=== PATIENT | male | born 1940 | race African-American/Black ===

== ENCOUNTER 2018-03-17 13:00 | Inpatient (IN) | payer MEDICARE, MEDICAID ==
[~2018-03-17] VITALS: Ht 172.7 cm; Wt 85.4 kg
[2018-03-17 15:55] VITALS: BP 91/61; PULSE 61; TEMP 97.7
[2018-03-17] MEDS ORDERED: TYLENOL 325MG325 MG PO (16:15)
[2018-03-17] MEDS ORDERED: COLACE 100100 MG/CAP PO (16:17)
[2018-03-17] MEDS ORDERED: ROXICODONE 55 MG/TAB PO (16:19)
[2018-03-17] MEDS ORDERED: MIRALAX PA17 GM/Dose PO (16:21)
[2018-03-17] MEDS ORDERED: OS-CAL 500 + D1 TAB PO (16:23)
[2018-03-17] MEDS ORDERED: NORVASC 10MG10 MG PO (16:26)
[2018-03-17] MEDS ORDERED: ASPIRIN 81M81 MG/TA2 PO (16:27)
[2018-03-17] MEDS ORDERED: LIPITOR 80MG80 MG PO (16:29)
[2018-03-17] MEDS ORDERED: PLAVIX 75MG TAB75 MG PO (16:30)
[2018-03-17] MEDS ORDERED: COZAAR 50MG50 MG/TAB PO (16:32)
[2018-03-17] MEDS ORDERED: MICROZIDE12.5 MG PO (16:32)
[2018-03-17] MEDS ORDERED: LOPRESSOR 550 MG/TAB PO (16:33)
[2018-03-17] MEDS ORDERED: FLOMAX 0.40.4 MG/CAP (16:34)
[2018-03-18 05:33] VITALS: BP 111/71; PULSE 66; TEMP 98.2
[2018-03-18 18:35] VITALS: BP 111/66; PULSE 74; TEMP 99.6
[2018-03-19 06:00] VITALS: BP 112/73; PULSE 69; TEMP 98.4
[2018-03-19 15:50] VITALS: BP 115/81; PULSE 74; TEMP 97.4
[2018-03-20 06:00] VITALS: BP 103/70; PULSE 77; TEMP 98.3
[2018-03-20 16:00] VITALS: BP 107/71; PULSE 76; TEMP 98.2
[2018-03-21 05:57] VITALS: BP 116/72; PULSE 78; TEMP 98.1
[2018-03-21 16:13] VITALS: BP 111/70; PULSE 72; TEMP 98.7
[2018-03-22 05:54] VITALS: BP 123/83; PULSE 91; TEMP 98
[2018-03-22 15:05] VITALS: BP 111/85; PULSE 65; TEMP 97.7
[2018-03-23 05:18] VITALS: BP 95/63; PULSE 71; TEMP 99.5
[2018-03-23 07:21] VITALS: BP 107/70
[2018-03-23 18:08] VITALS: BP 108/73; PULSE 74; TEMP 98.1
[2018-03-24 05:18] VITALS: BP 116/74; PULSE 96; TEMP 98.9
[2018-03-24 15:59] VITALS: BP 100/68; PULSE 69; TEMP 98.2
[2018-03-25 06:26] VITALS: BP 120/76; PULSE 80; TEMP 98.1
[2018-03-25 15:33] VITALS: BP 106/68; PULSE 74; TEMP 98
[2018-03-26 05:47] VITALS: BP 112/76; PULSE 85; TEMP 98.3
[2018-03-26 15:24] VITALS: BP 106/68; PULSE 68; TEMP 97.4
[2018-03-27 06:11] VITALS: BP 124/79; PULSE 89; TEMP 98.2
[2018-03-27 16:03] VITALS: BP 111/62; PULSE 72; TEMP 98.4
[2018-03-28 05:53] VITALS: BP 117/82; PULSE 71; TEMP 98.1
[2018-03-28 12:35] LABS: COLLECTION METHOD CLEAN CATCH
[2018-03-28 12:46] LABS: MUCOUS Present /lpf; PH 7 (5-8); SQUAMOUS EPITHELIAL 0-2 /hpf; URINE APPEARANCE Clear; URINE BACTERIA None Seen /hpf; URINE BILIRUBIN Negative (NEGATIVE); URINE BLOOD Negative (NEGATIVE); URINE COLOR Yellow; URINE GLUCOSE Negative (NEGATIVE); URINE KETONE Negative (NEGATIVE); URINE LEUKOCYTE ESTERASE Negative (NEGATIVE); URINE NITRATE Negative (NEGATIVE); URINE PROTEIN(semi-quant) Negative (NEGATIVE); URINE RBC 0-2 /hpf; URINE UROBILINOGEN >=4.0 mg/dL (NEGATIVE)
[2018-03-28] MEDS ORDERED: COSOPT 2%-0.5%10 ML OU (13:50)
[2018-03-28] MEDS ORDERED: XALATAN EYE DROPS OU (13:51)
[2018-03-28 15:12] VITALS: BP 118/76; PULSE 71; TEMP 97.8
[2018-03-29 04:09] VITALS: BP 118/75; PULSE 68; TEMP 98.1
[2018-03-29 07:33] LABS: BASO % 0.7 % (0.0-2.0); EOS # 0.2 (0.0-0.7); EOS % 3.6 % (0-4.0); GRAN # 2.7 (1.4-6.5); GRAN % 47.7 % (42.2-75.2); HEMATOCRIT 46.4 % (42.0-52.0); HEMOGLOBIN 15.6 g/dl (13.5-18.0); LYMPH # 2.2 (1.2-3.4); LYMPH % 39.3 % (20.0-51.0); MEAN CELL VOLUME 93 fl (80.0-100.0); MEAN CORPUSCULAR HEMOGLOBIN 31 pg (27.0-31.0); MEAN CORPUSCULAR HGB CONC 34 g/dl (33.0-37.0); MEAN PLATELET VOLUME 9.7 fl (7.4-10.4); MONO # 0.5 (0.1-0.6); MONO % 8.5 % (1.7-9.3); PLATELET COUNT 336 K/mm3 (130-400); REDCELL DISTRIBUTION WIDTH-CV 12.5 % (11.5-14.5)
[2018-03-29 07:59] LABS: CALCIUM 10.5 mg/dL (8.4-10.2); CREATININE, serum 1.03 mg/dL (0.66-1.25); MAGNESIUM 1.5 mg/dL (1.6-2.3); POTASSIUM 3.6 mmol/L (3.4-5.0)
[2018-03-29 15:44] VITALS: BP 115/76; PULSE 72; TEMP 97.8
[2018-03-30 06:25] VITALS: BP 114/72; PULSE 70; TEMP 98
[2018-03-30 17:14] VITALS: BP 118/74; PULSE 66; TEMP 98.9
[2018-03-31 05:24] VITALS: BP 111/75; PULSE 77; TEMP 98.3
[2018-03-31 18:19] VITALS: BP 104/71; PULSE 63; TEMP 98.2
[2018-04-01 04:50] VITALS: BP 112/76; PULSE 73; TEMP 98
[2018-04-01 08:37] VITALS: BP 128/74
[2018-04-01 08:46] LABS: ALBUMIN 3.6 gm/dL (3.5-5.0); BILIRUBIN,TOTAL 1.1 mg/dL (0.0-1.0); CALCIUM 10.1 mg/dL (8.4-10.2); CREATININE, serum 1.1 mg/dL (0.66-1.25); MAGNESIUM 1.6 mg/dL (1.6-2.3); POTASSIUM 3.6 mmol/L (3.4-5.0); TOTAL PROTEIN 7.2 gm/dL (6.4-8.2)
[2018-04-01 14:55] VITALS: BP 105/64; PULSE 78; TEMP 97.9
[2018-04-02 05:42] VITALS: BP 121/78; PULSE 71; TEMP 98.1
[2018-04-02 17:07] VITALS: BP 113/64; PULSE 76; TEMP 98
[2018-04-03 06:00] VITALS: BP 117/79; PULSE 67; TEMP 97.8
[2018-04-03 15:01] VITALS: BP 94/66; PULSE 75; TEMP 97.8
[2018-04-03 19:23] VITALS: BP 99/70; PULSE 78
[2018-04-04 04:39] VITALS: BP 112/66; PULSE 82; TEMP 98.6
[2018-04-04 15:45] VITALS: BP 95/61; PULSE 65; TEMP 98
[2018-04-05 05:17] VITALS: BP 133/86; PULSE 90; TEMP 98.1
[2018-04-05 17:02] VITALS: BP 109/68; PULSE 77; TEMP 98.5
[2018-04-06 05:45] VITALS: BP 140/78; PULSE 84; TEMP 98.4
[2018-04-06 17:55] VITALS: BP 113/76; PULSE 83; TEMP 99.3
[2018-04-07 06:00] VITALS: BP 106/70; PULSE 72; TEMP 98.5
[2018-04-07 15:37] VITALS: BP 109/70; PULSE 68; TEMP 98.3
[2018-04-08 05:19] VITALS: BP 122/76; PULSE 66; TEMP 98.5
[2018-04-08 15:08] VITALS: BP 108/60; PULSE 71; TEMP 97.5
[2018-04-09 05:20] VITALS: BP 122/83; PULSE 73; TEMP 97.6
[2018-04-09 15:45] VITALS: BP 110/76; PULSE 73; TEMP 9805
[2018-04-10 05:36] VITALS: BP 116/77; PULSE 71; TEMP 98.7
[2018-04-10] MEDS ORDERED: ARICEPT 5MG PO (08:53)
[2018-04-10] MEDS ORDERED: COZAAR 25MG25 MG/TAB PO (08:54)
[2018-04-10] MEDS ORDERED: MAG-OX 400400 MG/TAB PO (08:55)
== END 2018-04-10 11:01 | disposition home health service (06) | DRG 552 ==
PROVIDERS: Internal Medicine
DX: M47.12 Other spondylosis with myelopathy, cervical region (principal); I10 Essential (primary) hypertension; I25.10 Atherosclerotic heart disease of native coronary artery without angina pectoris; Z95.5 Presence of coronary angioplasty implant and graft; Z87.891 Personal history of nicotine dependence; E83.42 Hypomagnesemia; E83.52 Hypercalcemia; F03.90 Unspecified dementia, unspecified severity, without behavioral disturbance, psychotic disturbance, mood disturbance, and anxiety
CPT/HCPCS: 99222-AI; 99232-AI; 99239; A9284

== ENCOUNTER 2020-10-29 11:29 | Inpatient (IN) | payer MEDICARE, MEDICAID ==
[~2020-10-29] VITALS: Ht 185.4 cm; Wt 87.3 kg
[~2020-10-29 11:29] MED LIST: ARICEPT 5MG PO; ASPIRIN 81M81 MG/TA2 PO; COLACE 100100 MG/CAP PO; COSOPT 2%-0.5%10 ML OU; COZAAR 25MG25 MG/TAB PO; COZAAR 50MG50 MG/TAB PO; FLOMAX 0.40.4 MG/CAP; LIPITOR 80MG80 MG PO; LOPRESSOR 550 MG/TAB PO; MAG-OX 400400 MG/TAB PO; MICROZIDE12.5 MG PO; MIRALAX PA17 GM/Dose PO; NORVASC 10MG10 MG PO; OS-CAL 500 + D1 TAB PO; PLAVIX 75MG TAB75 MG PO; ROXICODONE 55 MG/TAB PO; TYLENOL 325MG325 MG PO; XALATAN EYE DROPS OU
[2020-10-29 11:46] LABS: BASO # 0.1 (0.0-0.2); BASO % 0.9 % (0.0-2.0); EOS # 0.5 (0.0-0.7); EOS % 9.4 % (0-4.0); GRAN # 2.2 (1.4-6.5); GRAN % 41.8 % (42.2-75.2); HEMATOCRIT 45.5 % (42.0-52.0); HEMOGLOBIN 14.9 g/dl (13.5-18.0); LYMPH % 37.6 % (20.0-51.0); MEAN CELL VOLUME 95 fl (80.0-100.0); MEAN CORPUSCULAR HEMOGLOBIN 31 pg (27.0-31.0); MEAN CORPUSCULAR HGB CONC 33 g/dl (33.0-37.0); MEAN PLATELET VOLUME 10.8 fl (7.4-10.4); MONO # 0.5 (0.1-0.6); MONO % 10.1 % (1.7-9.3); PLATELET COUNT 170 K/mm3 (130-400); REDCELL DISTRIBUTION WIDTH-CV 12.9 % (11.5-14.5)
[2020-10-29 11:52] LABS: INR 1.3 (0.8-3.0); PROTHROMBIN TIME 14.4 SECONDS (9.7-12.8)
[2020-10-29 12:01] LABS: ALANINE AMINOTRANSFERASE 25 U/L (4-49); ALBUMIN 3.9 gm/dL (3.5-5.0); ALKALINE PHOSPHATASE 89 U/L (50-136); ANION GAP 7 mmol/L (7-16); AST,SGOT 35 U/L (15-37); BILIRUBIN,TOTAL 1.3 mg/dL (0.0-1.0); BLOOD UREA NITROGEN 13 mg/dL (9-20); CALCIUM 9.9 mg/dL (8.4-10.2); CARBON DIOXIDE 24 mmol/L (22-30); CHLORIDE 106 mmol/L (98-107); CREATININE, serum 1.06 (0.66-1.25); GLUCOSE 99 mg/dL (74-106); SODIUM 137 mmol/L (137-145); TOTAL PROTEIN 7.5 gm/dL (6.4-8.2)
[2020-10-29 12:03] LABS: ACETAMINOPHEN < 10 ug/mL (10-30); C-REACTIVE PROTEIN < 0.5 mg/dL (0.0-0.9)
[2020-10-29 12:08] LABS: COLLECTION METHOD CATHETER
[2020-10-29 12:18] LABS: TROPONIN-I 0.057 ng/mL (0.000-0.035)
[2020-10-29 12:20] LABS: MUCOUS Present /lpf; PH 6 (5-8); SQUAMOUS EPITHELIAL 0-2 /hpf; URINE APPEARANCE Clear; URINE BACTERIA None Seen /hpf; URINE BILIRUBIN Negative (NEGATIVE); URINE BLOOD Negative (NEGATIVE); URINE COLOR Yellow; URINE GLUCOSE Negative (NEGATIVE); URINE KETONE Negative (NEGATIVE); URINE LEUKOCYTE ESTERASE Negative (NEGATIVE); URINE NITRATE Negative (NEGATIVE); URINE PROTEIN(semi-quant) Negative (NEGATIVE); URINE RBC None Seen /hpf
[2020-10-29 12:27] LABS: ARTERIAL BLD GAS O2 SATURATION 93.2 % (92-100); ARTERIAL BLD GAS TCO2 CT 23.9; ARTERIAL BLOOD GAS BASE EXCESS -2.4 (-2-2); ARTERIAL BLOOD GAS HCO3 22.7 meq/L (22-26); ARTERIAL BLOOD GAS PO2 70.9 mmHg (80-100); ARTERIAL BLOOD GAS pH 7.37 (7.35-7.45)
[2020-10-29 12:34] LABS: TRICYCLIC ANTIDEPRESS URINE NEGATIVE
[2020-10-29 17:44] VITALS: BP 121/83; PULSE 67; TEMP 98.4
--- NOTE | 2020-10-29 18:24 | NUR ---
NOTIFIED HALLE GILL OF PT'S REPEAT TROPONIN OF .062. NO NEW ORDERS AT THIS TIME.
--- NOTE | 2020-10-29 18:25 | NUR ---
PT ADMITTED TO ROOM 312 FROM ED. RECEIVED REPORT FROM HECTOR. PT TO MEDICAL BED VIA SLIDE ASSIST. PT ALERT/UNABLE TO ANSWERS QUESTIONS APPROPRIATELY. ABLE TO ANSWER YES/NO QUESTIONS. FOLLOWS MOTOR COMMANDS. PT ARRIVES IN BRIEF, CLEAN AND DRY AT THIS TIME. FAMILY CONTACTED TO DISCUSS PAST MEDICAL HX AND GO OVER HOME MEDS. PT VS WNL. NEUROLOGY CONTACTED FOR CONSULT. PT RESTING IN BED COMFORTABLY AT THIS TIME.
[2020-10-29] MEDS ORDERED: PROTONIX20 MG PO (18:33)
[2020-10-29] MEDS ORDERED: NAMENDA5 MG PO (18:33)
[2020-10-29] MEDS ORDERED: NORVASC 10MG10 MG PO (18:34)
[2020-10-29] MEDS ORDERED: [UNRECOGNIZED DRUG - OTHER] (18:35)
[2020-10-29 19:05] VITALS: BP 126/91; PULSE 62; TEMP 97.9
[2020-10-29 20:17] VITALS: BP 118/74; PULSE 70; TEMP 97.3
--- NOTE | 2020-10-29 20:30 | NUR ---
Initial shift assessment done- alert/has expressive aphasia, does answer "yes" and 'no" to questions and laughs but cannot put together a sentence, right arm hand seem just slightly weaker than left- bed alarm on, did stand at bedisde with assist and voided per urinal-- NPO and ST has been consulted - did give patient the 5-10 cc of water and pt did swwallow with no cough but seemed to just hold it in his mouth for awhile-- will keep NPO till ST to see-Charisse CORNELL aware. Dr. Stokes was here tonight to see patient for consult-- Pacemaker interrogation was done tonight by Paul SHEETStest deck supervisor
[2020-10-29 23:13] VITALS: BP 113/82; PULSE 74; TEMP 97.4
[2020-10-30 03:18] VITALS: BP 112/56; PULSE 69; TEMP 98
--- NOTE | 2020-10-30 05:19 | NUR ---
Quiet night- VSS, 2 assists to stand at bedside to use urinal--was already incontinent- unable to void more at this time. SCD,s on.
[2020-10-30 07:22] LABS: BASO # 0.1 (0.0-0.2); BASO % 0.9 % (0.0-2.0); EOS # 0.4 (0.0-0.7); EOS % 7.2 % (0-4.0); GRAN # 2.5 (1.4-6.5); GRAN % 47.8 % (42.2-75.2); HEMATOCRIT 47.9 % (42.0-52.0); LYMPH # 1.8 (1.2-3.4); LYMPH % 33.8 % (20.0-51.0); MEAN CELL VOLUME 94 fl (80.0-100.0); MEAN CORPUSCULAR HEMOGLOBIN 31 pg (27.0-31.0); MEAN CORPUSCULAR HGB CONC 33 g/dl (33.0-37.0); MEAN PLATELET VOLUME 11.8 fl (7.4-10.4); MONO # 0.5 (0.1-0.6); MONO % 10.1 % (1.7-9.3); PLATELET COUNT 158 K/mm3 (130-400); RED BLOOD COUNT 5.11 M/mm3 (4.20-5.60); REDCELL DISTRIBUTION WIDTH-CV 12.8 % (11.5-14.5)
[2020-10-30 07:36] VITALS: BP 110/86; PULSE 70; TEMP 98.2
[2020-10-30 07:38] LABS: ALBUMIN 4.1 gm/dL (3.5-5.0); BILIRUBIN,TOTAL 1.2 mg/dL (0.0-1.0); CALCIUM 10.1 mg/dL (8.4-10.2); CREATININE, serum 0.89 (0.66-1.25); POTASSIUM 3.7 mmol/L (3.4-5.0); TOTAL PROTEIN 7.7 gm/dL (6.4-8.2)
[2020-10-30 07:57] LABS: TROPONIN-I 0.196 ng/mL (0.000-0.035)
--- NOTE | 2020-10-30 09:30 | NUR ---
PT PLEASANT, WHEN ASKED QUESTIONS PT WILL ANSWER "YES, NO" OR PT WILL LAUGH. PT WILL FOLLOW COMMANDS. LIFTED BOTH ARMS BUT R ARM WAS LOWER THAN THE LEFT. R CASTING HOUSE LABORER WAS SLIGHTLY WEAKER, BOTH MULTIMEDIA AUTHOR WEAK. L LEG LIFTED, R LEG MOVES ON BED. UNABLE TO TELL IF PT IS ALERT AND ORIENTED. PT INCONTINENT OF URINE, PERICARE PROVIDED, GOWN AND BRIEF CHANGED. ASPIRIN SUPPOSITORY GIVEN. CALLED MRI ABOUT HEAD MRI FOR TODAY AND SHE SAID IT WOULDN'T HAPPEN UNTIL SUNDAY BECAUSE THEY HAVE NO ONE TO PLACE PACEMAKER IN STANDBY. WE ALSO NEED PT CARD FOR PACEMAKER. PT ABLE TO MOVE AROUND IN THE BED AND BOOST HIMSELF. BED ALARM SET DUE TO PT TRYING TO GET UP WHEN NEEDING TO URINATE. URINAL PLACED FOR PT WHEN HE HAS NOT ALREADY BEEN INCONTINENT. MAINTAINTING NPO AT THIS TIME, REPORTED FROM MOTHER REPAIRER RN THAT PT WOULD HOLD WATER IN HIS MOUTH BEFORE SWALLOWING WITH THE SWALLOW TEST.
--- NOTE | 2020-10-30 11:02 | NUR ---
First visit from the inorganic chemical technician. No needs right now.
--- NOTE | 2020-10-30 11:33 | NUR ---
PT DID VERY WELL WITH PT. UP TO EDGE OF BED, ABLE TO KICK OUT R LEG WITH ASSISTANCE AND HOLD IN AIR, ABLE TO MOVE ON BED. UP WITH WALKER, SHUFFLES/DRAGS R LEG GOING FORWARD.
[2020-10-30 12:39] VITALS: BP 114/71; PULSE 73; TEMP 98.2
--- NOTE | 2020-10-30 13:25 | NUR ---
Plan is tenative rehab options Sw called Brie about patients plan and DC care. reports that the patient has a DPOA, DTR Melanie Canela . The phone number on the EMR is not correct for Melanie Roberts. indicated that she is okay with the patient having rehab services, patient is reported to have been at [facility] in the beginning of 2019 for 2 months. reports that her spouse had surgery on his spine two years ago in [place] and does not thinking her every recovered. reports that his pcp is Dr. Oviedo. [facility] is the prefered pharmacy. Patient is reported to have a walker and cane but mainly uses the walker. Report of having a heart monitor at home that is plugged in continuously. SW spoke with patients DTR and she reports that she is okay with rehab but would like to have more medical information about his care. Pt recommends IPR. Waiting on family decision for care. TORRES consult sent to IPR prelim. Staffed with nurse to call DTR. Will continue to follow.
--- NOTE | 2020-10-30 15:48 | NUR ---
daughter oscar updated on pt progress.
[2020-10-30 16:05] VITALS: BP 117/77; PULSE 69; TEMP 98
--- NOTE | 2020-10-30 17:26 | NUR ---
PT PLEASANT, PT HAS REMAINED STABLE WITH STROKE SYMPTOMS, PT STARTED ON MAINTENANCE FLUIDS DUE TO NPO STATUS, PT HAS LOW OUTPUT, NO OTHER NEEDS.
[2020-10-30 19:30] VITALS: BP 112/77; PULSE 63; TEMP 98
--- NOTE | 2020-10-30 21:00 | NUR ---
Initial shift assessment done- VSS 94% on RA, does answer questions with yes and no answers, unable to put together a sentence, laughing at times-- right side slightly weaker than left- both hand bag filler machine operator very weak. Tele on. Denies pain. NPO. LR at 75cc/hr.
--- NOTE | 2020-10-30 22:30 | NUR ---
CARE OF PT TAKEN OVER AT 2200.
--- NOTE | 2020-10-30 23:46 | NUR ---
PT ADMITTED TO 319 DIRECT ADMIT FROM COSBY.
[2020-10-31 00:32] VITALS: BP 119/79; PULSE 112; TEMP 97.8
[2020-10-31 04:19] VITALS: BP 117/64; PULSE 77; TEMP 97.8
--- NOTE | 2020-10-31 06:04 | NUR ---
RESTING QUIETLY/SLEEPING. NEURO CHECKS UNCHANGED FROM PREVIOUS ASSESSMENTS. PT SHOWING NO SIGNS OF PAIN. PT CAN ANSWER YES/NO QUESTIONS BUT HIS ANSWERS ARE NOT ALWAYS APPROPRIATE TO SITUATION.
--- NOTE | 2020-10-31 07:57 | NUR ---
PT INC DROWSINESS FROM YESTERDAY, WOULD NOT HOLD UP LEFT LEG BUT HAD RESISTANCE AGAINST GRAVITY, COULD HOLD BOTH UPPER EXTREMITIES IN THE AIR, R GOLD CHARMER SLIGHTY WEAKER, PT ATTEMPT TO ANSWER QUESTIONS BUT UNABLE TO SPEAK OTHER THAN OK AND YES AND NO.
[2020-10-31 09:15] VITALS: BP 129/81; PULSE 82; TEMP 98.2
--- NOTE | 2020-10-31 09:39 | NUR ---
PT RUBBING HEAD AND SAYING "OH GOSH, OH GOSH" WITH PHYSICAL THERAPY, PT DENIES SLEEPING WELL AND IS MORE DROWSY. PT SAYING "YES MA'AM". ALSO NODDING YES OR NO TO QUESTIONS.
[2020-10-31 12:08] VITALS: BP 117/65; PULSE 62; TEMP 97.6
[2020-10-31 17:48] VITALS: BP 114/83; PULSE 68; TEMP 98.4
--- NOTE | 2020-10-31 17:57 | NUR ---
PT VERY DROWSY DURING SHIFT, PT TRIED TO GET OUT OF BED WHEN NEEDING URINAL, UNABLE TO VOICE NEEDS BUT WOULD URINATE WHEN THE URINAL WAS PLACED, PT ABLE TO HOLD URINAL IN PLACE. DAUGHTER/DPOA BO CALLED AND UPDATED, ASKED BO TO BRING PT PACEMAKER CARD FOR MRI TOMORROW, SHOULD BE DROPPED OFF AROUND [phone]. BO ALSO SAID SHE DOES NOT WANT ANY INFORMATION RELEASED TO ANYONE OTHER THAN GERDA, PT , OR HERSELF.
[2020-10-31 19:13] VITALS: BP 112/78; PULSE 69; TEMP 97.7
[2020-11-01] VITALS (7 sets, daily range): BP systolic 106–125; BP diastolic 75–83; PULSE 61–75; TEMP 97.5–98.5
--- NOTE | 2020-11-01 06:21 | NUR ---
QUIET NIGHT FOR PT. NO CHANGE IN NEURO CHECK RESPONSES. PT DID ANSWER YES/NO RESPONSES TO PAIN MORE APPROPRIATELY DURING THE NIGHT.
--- NOTE | 2020-11-01 09:15 | NUR ---
PT PLEASANT, WILL RESPOND WITH 1 WORD ANSWERS TO QUESTIONS, DENIES PAIN, DID WELL TRANSFERRING TO WHEELCHAIR WITH MRI. PT MORE ALERT THAN YESTERDAY. DOES NOT SHOW SIGNS OF PAIN/DISCOMFORT, PT TAKEN TO MRI AT 0848.
[2020-11-01 10:43] LABS: BASO # 0.1 (0.0-0.2); BASO % 0.9 % (0.0-2.0); EOS # 0.1 (0.0-0.7); EOS % 2.4 % (0-4.0); GRAN # 3.1 (1.4-6.5); GRAN % 53.4 % (42.2-75.2); HEMATOCRIT 48.5 % (42.0-52.0); HEMOGLOBIN 16.1 g/dl (13.5-18.0); LYMPH # 1.9 (1.2-3.4); LYMPH % 32.3 % (20.0-51.0); MEAN CELL VOLUME 93 fl (80.0-100.0); MEAN CORPUSCULAR HEMOGLOBIN 31 pg (27.0-31.0); MEAN CORPUSCULAR HGB CONC 33 g/dl (33.0-37.0); MEAN PLATELET VOLUME 10.2 fl (7.4-10.4); MONO # 0.6 (0.1-0.6); MONO % 10.7 % (1.7-9.3); PLATELET COUNT 188 K/mm3 (130-400); RED BLOOD COUNT 5.19 M/mm3 (4.20-5.60); REDCELL DISTRIBUTION WIDTH-CV 12.7 % (11.5-14.5)
[2020-11-01 10:58] LABS: CREATININE, serum 0.98 (0.66-1.25); MAGNESIUM 1.8 mg/dL (1.6-2.3); POTASSIUM 3.9 mmol/L (3.4-5.0)
[2020-11-01 11:28] LABS: TSH w REFLEX 1.44 uIU/mL (0.465-4.680)
--- NOTE | 2020-11-01 11:29 | NUR ---
ATTEMPTED TO CONTACT MIHAELA X2, NO ANSWER. LEFT VOICEMAIL FOR HIS NURSE AT HIS OFFICE.
--- NOTE | 2020-11-01 12:29 | NUR ---
DAUGHTER BO, AND GERDA CALLED IN AM INFORMING OF TESTS WE WOULD BE PERFORMING ON PT. GERDA ABLE TO INFORM US THAT MIHAELA/ALEXIA WAS HIS CARIDIOLOGY GROUP. PT ATTEMPTING TO GET OUT OF BED AT THIS TIME. WHEN ASKED WHY HE WAS EXITING THE BED HE STATED "I JUST WANT TO SIT UP". THIS IS THE FIRST TIME PT HAS USED A SENTENCE SINCE ADMISSION. BRIGETTE SWENSON NOTIFIED. PT UP TO CHAIR CURRENTLY WITH CALL LIGHT. PT WAS TRANSFERRED WITH GAIT BELT AND WALKER.
--- NOTE | 2020-11-01 13:23 | NUR ---
Radio Maintainer spoke with Jackie, IPR Director who advised they are able to accept patient.
[2020-11-01] MEDS ORDERED: ARICEPT10 MG PO (13:47)
--- NOTE | 2020-11-01 13:48 | NUR ---
PT GLASSES TAKEN TO PT AND HE PUT THEM ON. PT FAMILY ALSO BROUGHT SYNAPSIN NASAL SPRAY, CALLED LEELA MACHUCA TO INFORM OF FAMILY DESEIRE TO RESTART THIS MEDICATION.
--- NOTE | 2020-11-01 18:18 | NUR ---
PT ALERT DURING THE DAY, PT PLEASANT, PT WAS UP TO CHAIR, PT INCONTINENT OF URINE AND STOOL, PT DENIES PAIN OR DISCOMFORT AND DOES NOT SHOW SIGNS OF DISCOMFORT. DA BROUGHT NASAL SPRAY, SENT TO PHARMACY, NO OTHER NEEDS.
--- NOTE | 2020-11-01 22:00 | NUR ---
Pt assessment complete. Pt is laying in bed upon entry, arouses to voice. Is not able to answer questions besides yes and no. Denies pain. Able to take pills whole in applesauce. See Stroke assessment. Incontinent of urine, pericare provided. Fall precautions in place. Will continue to monitor.
[2020-11-02 05:07] VITALS: BP 100/73; PULSE 69; TEMP 98
--- NOTE | 2020-11-02 06:37 | NUR ---
No changes through the night. Pt resting in bed, SCD's on. No needs at this time.
[2020-11-02 07:30] VITALS: BP 119/83; PULSE 65; TEMP 98.1
[2020-11-02 07:51] LABS: BASO # 0.1 (0.0-0.2); BASO % 1.1 % (0.0-2.0); EOS # 0.2 (0.0-0.7); EOS % 4.2 % (0-4.0); GRAN # 1.7 (1.4-6.5); GRAN % 38.6 % (42.2-75.2); HEMATOCRIT 47.6 % (42.0-52.0); HEMOGLOBIN 15.5 g/dl (13.5-18.0); LYMPH % 44.5 % (20.0-51.0); MEAN CELL VOLUME 96 fl (80.0-100.0); MEAN CORPUSCULAR HEMOGLOBIN 31 pg (27.0-31.0); MEAN CORPUSCULAR HGB CONC 33 g/dl (33.0-37.0); MEAN PLATELET VOLUME 11.4 fl (7.4-10.4); MONO # 0.5 (0.1-0.6); MONO % 11.6 % (1.7-9.3); PLATELET COUNT 165 K/mm3 (130-400); RED BLOOD COUNT 4.96 M/mm3 (4.20-5.60); REDCELL DISTRIBUTION WIDTH-CV 13.1 % (11.5-14.5)
[2020-11-02 07:56] LABS: CALCIUM 9.5 mg/dL (8.4-10.2); CHOLESTEROL RISK RATIO 3.1; CREATININE, serum 0.93 (0.66-1.25); POTASSIUM 3.9 mmol/L (3.4-5.0)
--- NOTE | 2020-11-02 08:00 | NUR ---
PATIENT IS ORIENTED X2, DISPLAYS SOME CONFUSION/FORGETFULNESS. PATIENT ALSO DISPLAYING SOME APHAGIA POST CVA. NOTED RIGHT SIDES WEAKNESS. PATIENT IS 2 ASSIST AND INCONTINENT OF BOWL/BLADDER. PATIENT HAD MEDIUM, SOFT-FORMED BM THIS AM. VSS WITH TELE INPLACE. HEAD TO TOE ASSESSMENT COMPLETE, SEE CHARTING. BED ALARM ON. CALL LIGHT IN REACH. AM MEDS GIVEN IN APPLESAUCE.
[2020-11-02 08:44] LABS: ALBUMIN 3.6 gm/dL (3.5-5.0); BILIRUBIN,TOTAL 1.2 mg/dL (0.0-1.0); TOTAL PROTEIN 6.9 gm/dL (6.4-8.2)
--- NOTE | 2020-11-02 10:24 | NUR ---
Initial visit; Patient thanked Statistical Assistant for coming in and was receptive to Statistical Assistant keeping him in her prayers.
--- NOTE | 2020-11-02 11:14 | NUR ---
Data Quality Consultant attended clinical rounds with the team. The patient will tentatively discharge to [facility] for post acute rehab this day.
[2020-11-02] MEDS ORDERED: ELIQUIS 5MG PO (11:21)
[2020-11-02 11:29] VITALS: BP 98/65; PULSE 72; TEMP 97.6
--- NOTE | 2020-11-02 15:15 | NUR ---
PATIENT TRANSFERING TO [facility], SEE DISCHARGE ORDERS. GAVE REPORT TO SUDEEP BERRY. IV'S DC'D, COVERED SITE WITH GLENN. TELE OFF. PATIENT ESCORTED DOWN TO [facility] VIA WC. PERSONAL BELONGINGS SENT.
== END 2020-11-02 15:15 | DRG 64 ==
LOC: COL.ER 11:29 → MEDICAL 14:54
PROVIDERS: Family Medicine; Physician Assistant
DX: I63.9 Cerebral infarction, unspecified (principal); I21.A1 Myocardial infarction type 2; I50.32 Chronic diastolic (congestive) heart failure; R47.01 Aphasia; I48.91 Unspecified atrial fibrillation; R29.704 NIHSS score 4; I25.10 Atherosclerotic heart disease of native coronary artery without angina pectoris; E78.5 Hyperlipidemia, unspecified; N40.0 Benign prostatic hyperplasia without lower urinary tract symptoms; I11.0 Hypertensive heart disease with heart failure; K21.9 Gastro-esophageal reflux disease without esophagitis; G30.9 Alzheimer's disease, unspecified; F02.80 Dementia in other diseases classified elsewhere, unspecified severity, without behavioral disturbance, psychotic disturbance, mood disturbance, and anxiety; Z95.5 Presence of coronary angioplasty implant and graft; Z95.0 Presence of cardiac pacemaker; Z87.891 Personal history of nicotine dependence; Z98.1 Arthrodesis status
CPT/HCPCS: 99223-AI; 99232-AI; 99233-AI; 99239; A9585; J1650; J2310; J7120; Q9967

== ENCOUNTER 2020-11-02 09:22 | Inpatient (IN) | payer MEDICARE, MEDICAID ==
[~2020-11-02] VITALS: Ht 185.4 cm; Wt 81.5 kg
[~2020-11-02 09:22] MED LIST changes: +ARICEPT10 MG PO; +NAMENDA5 MG PO; +PROTONIX20 MG PO; +[UNRECOGNIZED DRUG - OTHER]
[2020-11-02] MEDS ORDERED: ELIQUIS 5MG PO (11:21)
[2020-11-02 15:21] VITALS: BP 99/65; PULSE 89; TEMP 97.6
--- NOTE | 2020-11-02 19:27 | NUR ---
Patient arrived to [facility] Room 338 and his initial was completed by ESPERANZA/Eloina. This nurse worked on admission papers and getting patient settled in. This nurse reported off to night nurse.
[2020-11-03 05:10] VITALS: BP 120/76; PULSE 60; TEMP 97.7
[2020-11-03 05:11] VITALS: BP 120/76; PULSE 60; TEMP 97.7
--- NOTE | 2020-11-03 12:54 | NUR ---
Patient resting in recliner, following eating his lunch. Patient answers yes or no only to questions. Speech is clear when he does speak. Call light in reach.
--- NOTE | 2020-11-03 16:08 | NUR ---
The patient had a CVA. The patient has difficulty finding words he wants to say. TORRES contacted the patient's , Brie (ph#[phone]), to complete intake. The patient lives in [place] with his . Brie reports that she set out his clothes and assisted him with bathing prior to hospitalization. His PCP is Dr. Nimesh Ybarra and she receives the patient's medications at [facility]. The patient does not have a DPOA-HC in EMR, but Brie reports that the patient does have one completed and that the patient's daughter, Melanie Canela (ph#[phone]), is her DPOA-HC. Brie reports that Dr. Ybarra's office should have a copy of the document. TORRES contacted Dr. Ybarra's [facility] office to inquire if they have a copy. The medical secretary receptionist reports that they do and will fax the document to the surgical unit. TORRES received the DPOA-HC, via fax. The patient's DPOA-HC is his daughter, Melanie. TORRES placed the document in the patient's chart. TORRES reviewed the IPR Team Conference Note with Brie and the team's recommendation to re-eval next Sunday. Brie was in agreement to the plan. TORRES to continue to follow.
[2020-11-03 17:07] VITALS: BP 126/72; PULSE 90; TEMP 99
--- NOTE | 2020-11-03 20:21 | NUR ---
RECEIVED CHANGE OF SHIFT REPORT FROM DAY SHIFT NURSE.
[2020-11-04 05:05] VITALS: BP 113/82; PULSE 69; TEMP 97.7
--- NOTE | 2020-11-04 07:05 | NUR ---
PT SLEEPING IN BED AT BEDSIDE SHIFT REPORT. BED IN LOW, CALL LIGHT WITHIN REACH, ALARM ON.
--- NOTE | 2020-11-04 07:28 | NUR ---
CHANGE OF SHIFT REPORT GIVEN TO DAY SHIFT NURSESANTO. PATIENT SLEPT DURING NIGHT WITH NO REPORTED PROBLEMS, WITH INCONTINENT EPISODES DURING THE NIGHT. BED ALARM ON WHEN IN BED.
[2020-11-04 16:19] VITALS: BP 104/75; PULSE 87; TEMP 97.8
[2020-11-04 17:26] VITALS: BP 127/84; PULSE 88; TEMP 98.4
[2020-11-04 18:00] VITALS: BP 104/75; PULSE 66; TEMP 98.1
--- NOTE | 2020-11-04 19:41 | NUR ---
PT REQUIRED SOME CUEING FOR MEALS TODAY BUT DOES WELL EATING OTHERWISE. DENIED PAIN, WAS CHECKED Q2 AND INCONTIENT OFTEN TODAY. PT NEEDS MUCH VERBAL CUEING FOR TRANSFERS OR ANY TASKS. VERY PLEASANT.
--- NOTE | 2020-11-04 21:00 | NUR ---
PT RESTING IN BED. PT HAS DIFFICULTY ANSWRIN QUESTION. WIFES NAME, DAUGHTERS NAME, . CALM AND COOPERATIVE. BUT IMPULSIVE AT TIMES. PT DOES NOT WANT TO CHANGE IN HS CLOTHES. WEARS DIAPERS FOR URINARY INCONTINENT. HAS NOT BEEN INCONT OF 1899. DENIES ANY PAIN. ASSIST TO BR WITH WALKER. LEANS WAY OVER WITH WALKER TOO FAR OUT FRONT. PT UNABLE TO FOLLOW CUES.UNSAFE GAIT. BILAT CUSTOMS OPENER VERIFIER PACKER EQUAL. EQUAL PUSH PULLS WITH FEET. CALL LIGHT IN REACH. BED ALARM SET.
[2020-11-05 05:38] VITALS: BP 105/66; PULSE 60; TEMP 97.9
--- NOTE | 2020-11-05 07:11 | NUR ---
PT WAS IMPULSIVE TWICE THROUGH THE NIGHT GETTING UP ON SIDE OF BED. FORGOT TO USE CALL LIKE. BED ALARM SOUNDING. SLEPT WELL THROUGH THE NIGHT.
--- NOTE | 2020-11-05 07:12 | NUR ---
PT SLEEPING IN BED AT BEDSIDE SHIFT REPORT. BED IN LOW, CALL LIGHT WITHIN REACH, BED ALARM ON.
[2020-11-05 08:34] LABS: BASO # 0.1 (0.0-0.2); EOS # 0.4 (0.0-0.7); EOS % 8.1 % (0-4.0); GRAN # 1.5 (1.4-6.5); GRAN % 31.4 % (42.2-75.2); HEMATOCRIT 47.9 % (42.0-52.0); HEMOGLOBIN 15.6 g/dl (13.5-18.0); LYMPH # 2.4 (1.2-3.4); LYMPH % 49.3 % (20.0-51.0); MEAN CELL VOLUME 95 fl (80.0-100.0); MEAN CORPUSCULAR HEMOGLOBIN 31 pg (27.0-31.0); MEAN CORPUSCULAR HGB CONC 33 g/dl (33.0-37.0); MEAN PLATELET VOLUME 10.5 fl (7.4-10.4); MONO # 0.5 (0.1-0.6); PLATELET COUNT 195 K/mm3 (130-400); RED BLOOD COUNT 5.07 M/mm3 (4.20-5.60)
[2020-11-05 08:49] LABS: CALCIUM 10.3 mg/dL (8.4-10.2); CREATININE, serum 1.14 (0.66-1.25); MAGNESIUM 1.9 mg/dL (1.6-2.3); POTASSIUM 3.5 mmol/L (3.4-5.0)
--- NOTE | 2020-11-05 13:52 | NUR ---
Admission QIM scores were reviewed by the team. Code of 3 chosen for eating was determined by team discussion to be the most usual performance for this patient during the assessment period. Code of 4 chosen for oral hygiene was determined by team discussion to be the most usual performance before interventions for this patient during the assessment period. Code of 2 chosen for rolling left to right was determined by team discussion to be the most usual performance for this patient during the assessment period. Code of 3 chosen for sit to lying was determined by team discussion to be the most usual performance for this patient during the assessment period.--Jackie Burgos, PD
--- NOTE | 2020-11-05 14:41 | NUR ---
SW met with the patient to follow up before the weekend. The patient states that he is doing well and just resting. He had no other concerns at this time.
[2020-11-05 16:24] VITALS: BP 120/81; PULSE 63; TEMP 98.7
--- NOTE | 2020-11-05 18:22 | NUR ---
PT CONTINENT TODAY. WAS IMPULSIVE WHEN NEEDED TO GET UP TO BATHROOM, DOES NOT CALL. PT FEEDING HIMSELF WELL. JUST NEEDS REMINDERS TO FOLLOW BITES WITH FLUIDS. PT RESTING IN BED WITH BED ALARM ON AND CALL LIGHT WITHIN REACH.
--- NOTE | 2020-11-05 20:00 | NUR ---
PT RESTING IN BED. EXPRESSIVE APHASIA. PT FORGETFUL. ABLE TO FOLLOW SIMPLE DIRECTIONS BUT NOT MULTITASKING. PT PUSHES WALKER WAY OUT IN FRONT AND PT LEANS HUNCHED. PT UNSTEADY WITH POOR SAFETY JUDGEMENT. PT CAN BE IMPULSIVE WHEN NEEDING TO GO TO BR INSTEAD OF USING CALL LIGHT. NO INCONTINENCE TONIGHT. CALL LIGHT IN REACH. REMINDED PT HOE TO USE. BED ALARM SET.
[2020-11-06 05:52] VITALS: BP 148/88; PULSE 68; TEMP 97.9
--- NOTE | 2020-11-06 15:09 | NUR ---
Patient attended all therapies today. He has been continent of bladder this shift. He does not use the call light appropriatly, instead just tries to get up on his own. He is currently resting in bed, call light in reach and bed alarm is set. Patient continues to be educated on the need to use the call light. Patient has expressive ephasia so is unable to communicate his needs without staff asking him yes/no questions. Patient denies pain this shift.
[2020-11-06 16:27] VITALS: BP 108/76; PULSE 64; TEMP 98.4
--- NOTE | 2020-11-06 18:04 | NUR ---
Patient resting in bed eating his supper at this time. Denies pain. He is watching TV. Patient educated on the need to eat slower. He voiced understanding. Patient has been continent this shift. Will continue to monitor.
--- NOTE | 2020-11-06 21:11 | NUR ---
RESTING IN BED. ALERT CALM AND COOPERTIVE. WATCHING TV. DENIES PAIN AT THIS TIME. CAN BE IMPULSIVE. HE IS VERY FORGETFUL. CALL LIGHT IN REACH. BED ALARM SET.
[2020-11-07 05:40] VITALS: BP 118/85; PULSE 68; TEMP 97.7
--- NOTE | 2020-11-07 08:52 | NUR ---
Patient reporting left leg pain this morning. He is unable to verbalize, but flinches when leg is touched. VSS. Will report to Hospitalist.
--- NOTE | 2020-11-07 09:05 | NUR ---
Call placed to Dr. Cheney with Dr. Cheney stating that he would return my call. Patient having positive Skip's sign to left leg/foot. VSS. BP 120/76, P 65, R 18, 90% on 2 L oxygen, Temp 97.5. Heart regular rate.
--- NOTE | 2020-11-07 12:11 | NUR ---
Patient woke up and was able to communicate through yes/no answers that his left leg foot did not hurt any more. Will continue to monitor.
[2020-11-07 15:01] VITALS: BP 104/71; PULSE 61; TEMP 97.9
[2020-11-08 05:24] VITALS: BP 128/90; PULSE 71; TEMP 98.1
--- NOTE | 2020-11-08 07:11 | NUR ---
PT RESTING IN BED AT BEDSIDE SHIFT REPORT. CALL LIGHT WITHIN REACH, BED ALARM ON.
--- NOTE | 2020-11-08 12:05 | NUR ---
PT DID NOT C/O LEFT LEG PAIN TODAY, HOMANS SIGN NEGATIVE, NO REDNESS, SWELLING, OR WARMTH.
--- NOTE | 2020-11-08 15:11 | NUR ---
SW met with the patient to follow after the weekend. The patient was watching TV and states that he is doing alright. He had no concerns for SW at this time.
[2020-11-08 15:48] VITALS: BP 103/70; PULSE 64; TEMP 98
--- NOTE | 2020-11-08 17:16 | NUR ---
PT WAS INCONTINENT OF URINE SEVERAL TIMES TODAY AND BOWEL ONCE. PT TRANSFERING WELL BUT REQUIRING LOTS OF CUEING AND IS EASILY TIRED OUT AFTER ACTIVITY. TOLERATING FEEDING HIMSELF VERY WELL, THIS NURSE CONTINUES TO CHECK FREQUENTLY AND ENCOURAGE FLUIDS IN BETWEEN BITES. PT DENIED ANY PAIN IN CALVES TODAY AND DENIED PAIN WITH ELISE'S NO REDNESS, SWELLING, OR WARMTH.
--- NOTE | 2020-11-08 19:04 | NUR ---
RECEIVED CHANGE OF SHIFT REPORT FROM DAY SHIFT NURSE.
[2020-11-09 03:40] VITALS: BP 121/81; PULSE 59; TEMP 98.7
--- NOTE | 2020-11-09 06:55 | NUR ---
CHANGE OF SHIFT REPORT GIVEN TO DAY SHIFT NURSESANTO.
--- NOTE | 2020-11-09 06:59 | NUR ---
PT SLEEPING IN BED AT BEDSIDE SHIFT REPORT. BED IN LOW, ALARM ON.
[2020-11-09 16:18] VITALS: BP 104/75; PULSE 62; TEMP 98.7
--- NOTE | 2020-11-09 17:36 | NUR ---
PT HAS BEEN CONTINENT ALL DAY, IMPULSIVE TO GET OUT OF BED WHEN NEEDS TO USE RESTROOM, DOES NOT CALL. PT DENIED ANY CALF PAIN TODAY. PT EATING MEALS WELL WITHOUT ASSITANCE, ENCOURAGE FLUIDS AT INTERVALS.
--- NOTE | 2020-11-09 19:38 | NUR ---
RECEIVED CHANGE OF SHIFT REPORT FROM DAY SHIFT NURSE. OXYGEN CONTINUES PER [place]. BED ALARM ON. PATIENT DENIES ANY NEEDS.
[2020-11-10 05:00] VITALS: BP 120/82; PULSE 70; TEMP 98
--- NOTE | 2020-11-10 08:00 | NUR ---
Patient incontinent of urine, changed brief. Currently resting in bed eating breakfast was set up only. Call light in reach and bed alarm is set with therapy by his side. Will continue to monitor.
--- NOTE | 2020-11-10 09:10 | NUR ---
Follow-up visit; Patient thanked Museum Registrar for looking in on him again and states he is doing well.
--- NOTE | 2020-11-10 10:00 | NUR ---
Resting in bed awaiting next therapy session. Bed is in low position and call light is in reach with bed alarm on. Will continue to monitor.
--- NOTE | 2020-11-10 14:00 | NUR ---
Patient had attempted to get up from his recliner and nurse from Surgical Staff attempted to help him, but could not figure out what he wanted. This nurse had him lead her to what he was wanting to say. He wanted to go to the bathroom. Patient did not have any output at that time. Patient is currently working with OT at this time. Will continue to monitor.
--- NOTE | 2020-11-10 16:05 | NUR ---
TORRES met with the patient to present and review the I[facility] Team Conference Note. SW informed him on how the team plans to re-evaluate him next Sunday. The patient was agreeable to the plan. SW contacted and updated the patient's , Brie. Brie was agreeable to the plan.
--- NOTE | 2020-11-10 16:45 | NUR ---
SW contacted the patient's and daughter and scheduled a patient/family conference call for this Sunday, 11/12, at 1300. SW informed IPR Director.
[2020-11-10 17:12] VITALS: BP 103/73; PULSE 62; TEMP 98.1
--- NOTE | 2020-11-10 21:00 | NUR ---
PT RESTING IN BED. CALM AND COOPERATIVE. VERY FORGETFUL BUT HAS NOT BEEN IMPULSIVE YET TONIGHT. PT RELATES HE IS READY TO EAT NOW. HOB ELEVATED. WARMED UP DINNER TRAY IN REFRIG. OCCASIONALLY INCONTINENT OF URINE. INSTRUCTED NOISE TESTER TO TAKE TO BR EVERY FEW HOURS & CHECK TO ENSURE DRYNESS. DENIES PAIN. CALL LIGHT IN REACH. BED ALARM SET.
--- NOTE | 2020-11-11 03:40 | NUR ---
BED ALARM SOUNDING. PT SITTING ON SIDE OF BED. DENIES NEED TO VOID. PT HAS DEMENTIA. CONVINCED PT TO AMB TO BR. PT VOIDED IN TOILET CARMEN CLEAR URINE. PT NOT DRINKING VERY MUCH. PT NOT READY TO GO TO BED. OFFERED WALK IN KRAMER. MASK ON. PT AMB APPROX 25FT. ALITTLE DYSPNEIC. RETURN TO BED. CHECKED O2 SAT-93% RA. PT DENIES PAIN. CALL LIGHT IN REACH. BED ALARM SET.
[2020-11-11 06:00] VITALS: BP 125/89; PULSE 69; TEMP 98
--- NOTE | 2020-11-11 09:18 | NUR ---
Patient resting in bed, call light in reach and bed alarm set. Patient takes pills whole in applesauce. He was set up for his meal this morning. Denies pain at this time. Will continue to monitor.
[2020-11-11 16:56] VITALS: BP 110/81; PULSE 54; TEMP 97.7
--- NOTE | 2020-11-11 22:34 | NUR ---
PT DROWSY BUT COOPERATIVE. TAKES HS PILLS WHOLEWITH WATER. NO CHOKING. PT HAS EXPRESSIVE APHAGIA AND DEMENTIA. WEARS BRIEFS FOR INCONTINENCE. COPPERATIVE AT THIS TIME. CALL LIGHT IN REACH BUT PT NEVER USES IT. BED ALARM SET.
[2020-11-12 05:22] VITALS: BP 121/61; PULSE 72; TEMP 98.6
--- NOTE | 2020-11-12 07:00 | NUR ---
PT RESTING IN BED AT BEDSIDE SHIFT REPORT. ASSISTED FOR SET UP FOR BREAKFAST.
--- NOTE | 2020-11-12 14:16 | NUR ---
SW attended the patient/family conference call. The patient's (Brie) and daughter (Melanie) were on the call. Also present was ST, OT, and PT. ST/OT/PT discussed the patient's progress so far and how the patient will need supervision when he returns home. The patient's reports that she is at home at all times and would be able to provide the supervision, along with the help from home health for bathing. The patient's and daughter report that the patient had home health prior to hospitalization. They could not recall what home health agency he has. SW informed the patient and his family how the plan is to re-evaluate the patient next Sunday. The patient and his family were agreeable to the time. The team answered all questions. SW to follow up with the patient's PCP on what home health agency he has.
[2020-11-12 16:16] VITALS: BP 116/82; PULSE 67; TEMP 97.8
--- NOTE | 2020-11-12 18:18 | NUR ---
PT DENIES PAIN TODAY, DOES NOT EXHIBIT PHYSICAL SIGNS OF DISCOMFORT. WAS SOMEWHAT FRUSTRATED OR IRRITATED A COUPLE TIMES WITH THIS NURSE TODAY. UNABLE TO EXPLAIN WHY. SCHEDULED TYLENOL GIVEN THIS EVENING AFTER HELPED TO BATHROOM AND INTO BED. ENCOURAGING FLUIDS FOR PT, PT DOES NOT ENJOY TEA THAT WAS MADE FOR HIM TODAY. DIFFICULT TO MAKE HIM DRINK.
--- NOTE | 2020-11-12 19:17 | NUR ---
RECEIVED CHANGE OF SHIFT REPORT FROM DAY SHIFT NURSE.
[2020-11-13 05:55] VITALS: BP 108/82; PULSE 65; TEMP 98.2
--- NOTE | 2020-11-13 07:22 | NUR ---
CHANGE OF SHIFT REPORT GIVEN TO DAY SHIFT NURSECHASTITY.
--- NOTE | 2020-11-13 10:00 | NUR ---
Assessment completed, alert/oriented, vital sign stable, denies pain or discomfort, some mild right sided weakness is still noted, patient also continues to have significant expressive aphasia, no other neuro deficits noted, heart RRR, lungs CTA/ no resp difficulty, patient denies other needs, he is up in the chair eating breakfast, morning meds given
[2020-11-13 18:04] VITALS: BP 102/72; PULSE 66; TEMP 98.6
--- NOTE | 2020-11-14 02:13 | NUR ---
AWAKENED FOR MED. PT WAS DRY. DENIES THE NEED TO USE THE BATHROOM. BED ALARM REMAINS ON. CALL LIGHT IN REACH.
[2020-11-14 05:41] VITALS: BP 119/86; PULSE 71; TEMP 98
--- NOTE | 2020-11-14 07:30 | NUR ---
PT WAS CONTINENT THIS SHIFT. UP TO THE BR X3. NO C/O PAIN. BED ALARM ON. CALL LIGHT IN REACH.
--- NOTE | 2020-11-14 09:33 | NUR ---
Assessment completed, vital signs stable, denies pain or discomfort, alert/oriented to person and place, reported sleeping well, patient did not want any breakfast, he denies need to use restoom, wearing adult breifs and those are dry, he took his morning meds and follows commands well, his expressive aphasia does not appear to be as pronounced today and he is able to form sentences with less difficulty based on my assessment, heart RRR/ Eliquis given, bed alarm is on and patient has call light, reminided to call if needing assistance, he denies other needs at this time
[2020-11-14 17:22] VITALS: BP 103/72; PULSE 76; TEMP 98.3
--- NOTE | 2020-11-14 19:33 | NUR ---
RECEIVED CHANGE OF SHIFT REPORT FROM DAY SHIFT NURSE.
[2020-11-15 05:43] VITALS: BP 127/79; PULSE 65; TEMP 98.1
--- NOTE | 2020-11-15 07:00 | NUR ---
CHANGE OF SHIFT REPORT GIVEN TO DAY SHIFT NURSESANTO.
--- NOTE | 2020-11-15 07:05 | NUR ---
PT SLEEPING IN BED AT BEDSIDE SHIFT REPORT. BED IN LOW, ALARM ON.
[2020-11-15 16:11] VITALS: BP 102/75; PULSE 60; TEMP 98.3
--- NOTE | 2020-11-15 17:28 | NUR ---
PT RECIEVED SCHEDULED APAP AT 1245. DENIES PAIN, DID SHOW SOME AGITATION WITH THIS NURSE AND OT TODAY. PT NOT DRINKING ENOUGH. OUTPUT MINIMAL TODAY. THIS NURSE INTENDS TO BLADDER SCAN POST VOID IF PT VOIDS AGAIN THIS SHIFT.
--- NOTE | 2020-11-15 19:17 | NUR ---
RECEIVED CHANGE OF SHIFT REPORT FROM DAY SHIFT NURSE.
--- NOTE | 2020-11-15 22:38 | NUR ---
OBSERVED PATIENT SLEEPING SITTING UP IN CHAIR, PATIENT AMBULATED TO BSC AT SIDE OF BED, GAIT SLIGHT UNSTEADY D/T REPORTED FATIGUE. PATIENT DID NOT VOID, PASS FLATUS, PATIENT INDICATED HE DID NOT KNOW IF HE HAD VOIDED BUT THOUGHT HE PASSED BM. BED ALARM ON.
[2020-11-16 03:25] VITALS: BP 109/58; PULSE 83; TEMP 98.9
--- NOTE | 2020-11-16 07:06 | NUR ---
bedside shift report received from SUDEEP Rose
--- NOTE | 2020-11-16 07:14 | NUR ---
CHANGE OF SHIFT REPORT GIVEN TO DAY SHIFT NURSE
--- NOTE | 2020-11-16 07:45 | NUR ---
sitting up in bed, assisting him and reminding him to eat breakfast, he follows commands, takes meds without difficulty,
--- NOTE | 2020-11-16 08:45 | NUR ---
occupational therapy in and will assist him with taking a shower
--- NOTE | 2020-11-16 09:33 | NUR ---
resting in chair after shower with occupational therapy, full assessment completed, see interventions for further info
--- NOTE | 2020-11-16 11:02 | NUR ---
ambulated out to florez with physical therapy and to therapy work room
--- NOTE | 2020-11-16 11:57 | NUR ---
head of bed elevated and lunch tray placed in front of him and he is informed he needs to have lunch now
--- NOTE | 2020-11-16 13:26 | NUR ---
physical therapy in working with patient
--- NOTE | 2020-11-16 15:21 | NUR ---
remains up in chair, was "talking" on phone with his
--- NOTE | 2020-11-16 15:37 | NUR ---
Ammonia Print Operator met with the patient to follow up. He had questions about his heart healthy diet packet. SW left message for Mel Dietitian to meet with the patient.
--- NOTE | 2020-11-16 16:25 | NUR ---
chair alarm sounded, JOB PUTTER UP AND TICKET PREPARER coming into room and states she saaw patient start to sit back down in the chair but sat on the edge of chair and slid on down onto the floor, with 2 people assisted up off floor and into recliner, positioned buttocks back into the chair, denies pain, VSS
[2020-11-16 16:27] VITALS: BP 120/81; PULSE 76; TEMP 97.9
--- NOTE | 2020-11-16 18:18 | NUR ---
entered room and he appears to be trying to lower foot of recliner, states he has to go to bathroom, assisted up and into bathroom and voided qs, then out and into bed
--- NOTE | 2020-11-16 18:32 | NUR ---
bedside shift report given to SUDEEP Rose
--- NOTE | 2020-11-16 18:48 | NUR ---
RECEIVED CHANGE OF SHIFT REPORT FROM DAY SHIFT NURSE.
--- NOTE | 2020-11-16 20:00 | NUR ---
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 OBSERVED NO FACIAL DROOPING AND NO PROBLEMS SWALLOWING PILLS OR SOLID FOODS OR THIN LIQUIDS. PATIENT CONTINUES WITH EXPRESSIVE APHAGIA.
--- NOTE | 2020-11-16 20:00 | NUR ---
WEAKER RUE/RLE STRENGTH. DENIES URGE TO VOID AT THIS TIME, ABD SOFT, REPORT NO DISCOMFORT/URGE TO VOID WITH PALPATION TO LOWER ABD/PELVIC AREA. PATIENT ANSWERED "YES" IF HE WAS VERY TIRED. NO FACIAL DROOPING OBSERVED AT THIS TIME.
[2020-11-17 05:17] VITALS: BP 146/95; PULSE 70; TEMP 97.3
--- NOTE | 2020-11-17 07:21 | NUR ---
CHANGE OF SHIFT REPORT GIVEN TO DAY SHIFT NURSEJAMAL.
--- NOTE | 2020-11-17 08:33 | NUR ---
Patient working with ST at this time.
--- NOTE | 2020-11-17 10:24 | NUR ---
Patient working with OT at this time. Will continue to monitor.
[2020-11-17 12:30] VITALS: BP 133/82; PULSE 85
[2020-11-17 14:30] VITALS: BP 133/82; PULSE 85
--- NOTE | 2020-11-17 14:30 | NUR ---
Patient had a non injury fall. Dr. Box was called, Charge Nurse was notified, Patient's will be notified. Not able to reach at this time. All charting has been completed and patient is resting in bed comfortably.
--- NOTE | 2020-11-17 16:32 | NUR ---
Brie was called about patients non-injury fall in his room. Will continue to monitor.
--- NOTE | 2020-11-17 16:45 | NUR ---
Put a sign in close proximaty of patient to remind him to use call light if he wants any thing. Educated patient on the use of the call light again.
[2020-11-17 17:31] VITALS: BP 121/80; PULSE 64; TEMP 98
--- NOTE | 2020-11-17 17:48 | NUR ---
Deburrer attended team conference and they would like patient's to come in for a day to observe the level of care he needs to determine recommendation SNF vs Home Health. Jackie, IPR director obtained approval for visitor. SW contacted patient's , Brie who advised she would be happy to come in on Sunday.
--- NOTE | 2020-11-17 17:54 | NUR ---
Patient resting in bed, call light in reach and bed alarm set. Patient eating his supper in bed watching TV. He is resting with no signs of agitation, legs are resting comfortably and patient denies pain when asked. Will continue to monitor.
--- NOTE | 2020-11-17 17:57 | NUR ---
Patient was set up for all his meals and required queing to eat. He required assistance opening up containers, but he was able to sprinkle pepper on his food. He required queing for eating his dessert using a spoon. He at first tried to eat it by lickiing the food from the container, but once he was shown to use the spoon he was able to do it himself. Patient ate 90% of his meal this evening.
[2020-11-18 05:13] VITALS: BP 129/79; PULSE 70; TEMP 97.8
--- NOTE | 2020-11-18 07:14 | NUR ---
PT SLEEPING IN BED AT BEDSIDE SHIFT REPORT. BED ALARM ON, CALL LIGHT WITHIN REACH.
--- NOTE | 2020-11-18 14:29 | NUR ---
Callisthenics Instructor spoke with patient's and advised she is approved to come in from 0900 to 1500.
[2020-11-18 16:40] VITALS: BP 121/84; PULSE 77; TEMP 98.1
--- NOTE | 2020-11-18 18:15 | NUR ---
CONTINUE TO ENCOURAGE PT TO DRINK MORE FLUIDS, NOT SUCCESSFUL. PT WAS INCONTINENT ONCE THIS SHIFT. AND VOIDED TWICE FOR THIS NURSE. PT CONTINUES TO BE IMPULSIVE AND UNABLE TO ANSWER IN SENTENCES.
--- NOTE | 2020-11-18 21:00 | NUR ---
PT RESTING IN BED. CALM AND COOPERATIVE. APHASIC. GETS FRUSTRATED WHEN CANT SAY CORRECT WORD. HX DEMENTIA. RT SIDED WEAKNESS. PT HAS POOR SAFETY JUDGEMENT. IMPULSIVE AT TIMES. BED/CHAIR ALARM SET. WEARS ADULT DIAPERS FOR OCCASIONAL URINARY INCONTINENCE. PT CAN GET AGITATED AT TIMES. PT TOOK ALL JUICE W/MIRALX MIXED IN AND H20 WITH HS PILLS. NO CHOKING.
[2020-11-19 04:12] VITALS: BP 131/91; PULSE 56; TEMP 98.9
[2020-11-19 16:47] VITALS: BP 109/71; PULSE 69; TEMP 98.6
--- NOTE | 2020-11-19 20:09 | NUR ---
Patient attended all therapies this morning and his arrived to attended those sessions with him. Patient had an episode of stool incontinence this morning. Patient had to have his clothing cleaned and brief changed. He did get a shower following that incontience episode when working with OT. assisted staff with cleaning patient up. Patient denied pain this shift. Reported off to night nurse. Will continue to monitor.
--- NOTE | 2020-11-19 21:00 | NUR ---
PT PLEASANTLY CONFUSED AND COOPERATIVE AT THIS TIME. FATIGUED. HS CARES DONE IN BED. DENIES PAIN. APHASIC/DEMENTIA NOTED. PT AMB WITH POOR SAFETY JUDGMENT. USES WALKER WAY OUT IN FRONT AND UNABLE TO STAND UP STRAIGHT. HAS BRIEFS OF FOR URINARY INCONTINENCE. NO NEEDS AT THIS TIME. CALL LIGHT IN REACH. BED ALARM SET.
[2020-11-20 05:09] VITALS: BP 102/69; PULSE 72; TEMP 97.9
--- NOTE | 2020-11-20 06:59 | NUR ---
PT SLEEPING IN BED AT BEDSIDE SHIFT REPORT. BED ALARM ON, CALL LIGHT WITHIN REACH.
--- NOTE | 2020-11-20 09:19 | NUR ---
PT SAT UP AND SET UP FOR BREAKFAST. PT ENCOURAGED TO EAT 4-5 TIMES AND PT CONTINUED TO FALL ASLEEP. PT STATED HE DID WANT TO EAT. AT THIS POINT, THIS NURSE ASSISTED PT TO EAT. PT ONLY ATE MAYBE 50% OF MEAL. PT WAS THEN ASSISTED TO RESTROOM. PT SEEMED MORE CONFUSED THIS AM THAN USUAL, NEEDING EVEN MORE CUES THEN NORMAL. PT ATTEMPTING TO LEAN ON VARIOUS ITEMS IN ROOM, UNABLE TO MAKE FROM TOILET SEAT TO RECLINER ON OTHER SIDE OF BED EASILY LIKE USUAL. WHEN ASKED IF PT WAS OUT OF BREATH HE SAID NO, O2 SATS WERE AT 94. WHEN ASKED IF HE WAS JUST MORE TIRED PT STATED NO. PT HAS DEMENTIA AND APHASIA, SO DIFFICULT TO ASSESS WAS IS FACTUAL OR NOT. WILL CONTINUE TO MONITOR PT.
[2020-11-20 12:13] VITALS: BP 93/63; PULSE 70; TEMP 98.3
--- NOTE | 2020-11-20 12:14 | NUR ---
PT ASSISTED TO THE BATHROOM AGAIN PRIOR TO LUNCH. PT NEEDED A BREAK FROM RECLINER TO BED, THEN BED TO TOILET. PT TRANSFERRED BACK IN WC TO RECLINER. PT MORE LETHARGIC THAN USUAL, WON'T STAY AWAKE TO EAT LUNCH. VS TAKEN, 93/63, P:70, R:20, TEMPE 98.3. INDUSTRIAL CHEMICALS SUPERVISOR STRENGTH EQUAL IN BUE, PUPILS PIN POINT, RLE DRAGGING WHEN WALKING AND IS WEAKER THAN USUAL. MID LEVEL KARLA CALLED ABOUT ASSESSMENT FINDINGS AND A CT HEAD W/O CONTRAST ORDERED.
[2020-11-20 13:00] LABS: BASO # 0.1 (0.0-0.2); BASO % 0.4 % (0.0-2.0); EOS % 0.2 % (0-4.0); GRAN # 13.4 (1.4-6.5); GRAN % 83.6 % (42.2-75.2); HEMATOCRIT 51.5 % (42.0-52.0); HEMOGLOBIN 16.8 g/dl (13.5-18.0); LYMPH # 1.4 (1.2-3.4); LYMPH % 8.8 % (20.0-51.0); MEAN CELL VOLUME 97 fl (80.0-100.0); MEAN CORPUSCULAR HEMOGLOBIN 32 pg (27.0-31.0); MEAN CORPUSCULAR HGB CONC 33 g/dl (33.0-37.0); MEAN PLATELET VOLUME 10.8 fl (7.4-10.4); MONO % 6.4 % (1.7-9.3); PLATELET COUNT 206 K/mm3 (130-400); RED BLOOD COUNT 5.31 M/mm3 (4.20-5.60); REDCELL DISTRIBUTION WIDTH-CV 14.2 % (11.5-14.5)
[2020-11-20 13:09] LABS: INR 2.7 (0.8-3.0); PROTHROMBIN TIME 30.1 SECONDS (9.7-12.8)
[2020-11-20 13:11] LABS: ALBUMIN 4.2 gm/dL (3.5-5.0); BILIRUBIN,TOTAL 1.4 mg/dL (0.0-1.0); CALCIUM 10.4 mg/dL (8.4-10.2); CREATININE, serum 1.35 (0.66-1.25); POTASSIUM 4.4 mmol/L (3.4-5.0); TOTAL PROTEIN 7.8 gm/dL (6.4-8.2)
--- NOTE | 2020-11-20 15:11 | NUR ---
IV FLUIDS ORDERED BY KARLA. 22 G IV STARTED IN RT UPPER ARM. 5 ATTEMPTS BY TWO NURSES. PT WAS NOT COOPERATIVE AND MOVED QUITE A BIT. 500MLS NS STARTED RUNNING AT 500 MLS/HR.
--- NOTE | 2020-11-20 16:14 | NUR ---
PT STRAIGHT CATHETERIZED WITH COUDE CATHETER AND URINE SAMPLE COLLECTED. URINE CARMEN, CLOUD WITH SEDIMENT. MAYBE MILD RED TINGE. PT C/O PAIN WHILE ADVANCING THOUGH NO RESISTANCE MET AND WHEN PULLING OUT.
[2020-11-20 16:54] VITALS: BP 97/70; PULSE 71; TEMP 98.5
--- NOTE | 2020-11-20 18:14 | NUR ---
PT CONTINUES TO BE TOO LETHARGIC TO EAT ON HIS OWN. PT NEEDS ASSISTANCE WITH EATING, AND DRINKING. PT READY FOR BED, CALL LIGHT WITHIN REACH, BED ALARM ON.
--- NOTE | 2020-11-20 19:32 | NUR ---
END OF SHIFT REPORT GIVEN AND ASSISTED DAY SHIFT NURSE WITH GETTING PT TO THE BATHROOM. NO VOIDING. BACK TO BED. ALARM ON. CALL LIGHT IN REACH. RADIOLOGY HERE, PORTABLE CXR COMPLETED.
[2020-11-21 04:30] VITALS: BP 147/74; PULSE 55; TEMP 98.3
--- NOTE | 2020-11-21 04:35 | NUR ---
PT AWAKENS TO VERBAL STIMULI. ASK PT TO WALK TO THE BATHROOM AND ASSISTED WITH WALKER AND GAIT BELT. MULTIPLE CUES TO JUST GET TO THE STOOL AND BACK TO BED. HAD MODERATE, SOFT BM. VOIDED IN STOOL AND INCONT SMALL AMOUNT. BED ALARM REACTIVATED AND CALL LIGHT IN REACH. GLASSES PLACED ON BEDSIDE TABLE.
[2020-11-21 04:56] VITALS: BP 102/64; PULSE 77; TEMP 97.7
--- NOTE | 2020-11-21 06:54 | NUR ---
PT SLEEPING IN BED AT BEDSIDE SHIFT REPORT. BED ALARM ON.
--- NOTE | 2020-11-21 13:44 | NUR ---
PT AMBULATED TO THE BATHROOM ABOUT BASELINE THIS MORNING. CONTINUES TO NEED LOTS OF CUES BUT NOT MORE THAN USUAL. PT DOES STILL SEEM MORE CONFUSED, AND LETHARGIC. FALLING ASLEEP AT MEALS, NEEDING TO BE FED AND NOT UNDERSTANDING ALL BASIC CUES. STILL WAITING FOR MRI OF BRAIN, WILL BE DONE TOMORROW BECAUSE OF THE WEEKEND. SMALL AMOUNT OF BLOOD NOTED FROM TIP OF PENIS POST VOID THIS AM. MAY BE TRAUMA FROM THE STRAIGHT CATHETERIZATION YESTERDAY, PT C/O PAIN, THOUGH THIS NURSE MET NO RESISTANCE.
[2020-11-21 14:34] LABS: COLLECTION METHOD CATHETER
[2020-11-21 14:48] LABS: MUCOUS Present /lpf; PH 6 (5-8); SQUAMOUS EPITHELIAL 0-2 /hpf; URINE APPEARANCE Cloudy; URINE BACTERIA Rare /hpf; URINE BILIRUBIN Negative (NEGATIVE); URINE BLOOD 2+ (NEGATIVE); URINE COLOR Amber; URINE GLUCOSE Negative (NEGATIVE); URINE KETONE Negative (NEGATIVE); URINE LEUKOCYTE ESTERASE 3+ (NEGATIVE); URINE NITRATE Negative (NEGATIVE); URINE PROTEIN(semi-quant) 2+ (NEGATIVE); URINE RBC >50 /hpf; URINE UROBILINOGEN >=4.0 mg/dL (NEGATIVE)
[2020-11-21 17:16] VITALS: BP 109/75; PULSE 82; TEMP 102.2
[2020-11-21 17:30] VITALS: TEMP 102.5
--- NOTE | 2020-11-21 17:39 | NUR ---
PT HAD FEVER OF 102.5 THIS EVENING AFTER GETTING OUT OF BED AND TO BATHROOM AND WALKING TO RECLINER. THIS NURSE GAVE PT SCHEDULED 500 MG APAP AND WILL MONITOR TO SEE IF IT TREATS SYMPTOMS. PT UNABLE TO WALK FROM BATHROOM TO RECLINER WITHOUT BREAK THIS EVENING. VERY CONFUSED ABOUT WALKING AROUND BED, TRYING TO REACH OUT FOR OTHER THINGS RATHER THEN KEEPING HANDS ON WALKER. PT NOT FOLLOWING VERBAL CUES. WILL NOTIFIY DOCTOR IF APAP DOES NOT BRING FEVER DOWN.
[2020-11-21 18:36] VITALS: TEMP 99.5
--- NOTE | 2020-11-21 18:43 | NUR ---
PT'S TEMPERATURE WENT DOWN TO 99.5 AN HOUR AFTER ADMINISTERING APAP. PT IS BACK IN BED AND RESTING AT THIS TIME. DENTURES ARE OUT AND WERE CAUSING HIM PAIN AND DIFFICULTY EATING AT DINNER. MOVING AROUND.
[2020-11-22 04:17] VITALS: BP 92/62; PULSE 74; TEMP 99.2
--- NOTE | 2020-11-22 06:23 | NUR ---
LAB HERE TO DRAW BLOOD. LAKESHA FROM LAB WITNESSED I TOOK OFF 3 GOLD RINGS AND A GOLD NECKLACE. SEE SEALED ENVELOPE WILL PUT IN LOCKUP. PLANNING MRI TODAY. NEW ID BAND ON RT ARM. INT NEEDLE TO RT AC FLUSHES WELL. GAVE SCHEDULED TYLENOL WITH SMALL SIP H20 OTHERWISE HAS BEEN NPO [place]CE [place].
--- NOTE | 2020-11-22 06:30 | NUR ---
PT REFUSED BR. AMB BACK TO BED. CALL LIGHT IN REACH. BED ALARM SET.
[2020-11-22 07:02] LABS: BASO % 0.4 % (0.0-2.0); EOS # 0.1 (0.0-0.7); EOS % 0.7 % (0-4.0); GRAN # 7.5 (1.4-6.5); GRAN % 71.6 % (42.2-75.2); HEMATOCRIT 41.8 % (42.0-52.0); LYMPH # 1.7 (1.2-3.4); LYMPH % 16.3 % (20.0-51.0); MEAN CELL VOLUME 97 fl (80.0-100.0); MEAN CORPUSCULAR HEMOGLOBIN 31 pg (27.0-31.0); MEAN CORPUSCULAR HGB CONC 32 g/dl (33.0-37.0); MEAN PLATELET VOLUME 11.2 fl (7.4-10.4); MONO # 1.1 (0.1-0.6); MONO % 10.5 % (1.7-9.3); PLATELET COUNT 185 K/mm3 (130-400); REDCELL DISTRIBUTION WIDTH-CV 14.2 % (11.5-14.5)
[2020-11-22 07:13] LABS: CALCIUM 9.5 mg/dL (8.4-10.2); CREATININE, serum 1.29 (0.66-1.25); POTASSIUM 3.9 mmol/L (3.4-5.0)
[2020-11-22 07:23] LABS: HEMOGLOBIN 13.3 g/dl (13.5-18.0)
--- NOTE | 2020-11-22 16:21 | NUR ---
Laundry Tech collaborated with Jackie, [facility] Director who advised Dr. Box would like to keep patient until but the plan is to return home with Home Health. SW followed up with patient's , Brie and patient's daughter, Melanie about discharge planning. Their preference would be [facility], which patient has had in the past. SW met with patient to check in and patient states he had a good weekend. Patient is agreeable to [facility]. SW faxed referral to [facility] and will continue to follow.
[2020-11-22 16:43] VITALS: BP 100/66; PULSE 63; TEMP 98.9
[2020-11-22 17:36] LABS: HEMATOCRIT 44.4 % (42.0-52.0); HEMOGLOBIN 14.1 g/dl (13.5-18.0)
--- NOTE | 2020-11-22 19:49 | NUR ---
Patient attended morning therapies. This nurse was unable to get patients right AC IV to work, so pulled that IV and restarted a new IV to patient's left forearm using 22 G Needle. Patient tolerated well. Patient was seen by Dr. Box this afternoon, see new orders. Patient was NPO today until 2:30 PM when he returned from his MRI. Patient was a one assist with a walker using the bathroom. He had a large BM today that was incontinent of both bowel and urine. Patient was cleaned up and put on new briefs. Patient was supposed to be discharged tomorrow, but Dr. Box oredered for patient to stay until once test results come back. Patient has had blood in his urine today, see new orders to hold his elaqis and aspirin. Patient is also on IV fluids 100 ml an hour and will stopp after he has had 1 Liter of fluids. Patient currently resting in bed, call light in reach and bed alarm is set. This nurse reported off to night nurse.
--- NOTE | 2020-11-22 21:49 | NUR ---
Resting in bed. Assessment complete. Lungs clear. Heart sounds normal. Bowels active x4. Pulses present throughout. Bilateral lower ext edema +1. . IV left forearm without complications. Denies pain. Denies needs at this time. Call light in reach.
--- NOTE | 2020-11-23 00:15 | NUR ---
Resting in bed. Brief clean. Denies pain. Denies needs at this time. Call light in reach.
--- NOTE | 2020-11-23 01:57 | NUR ---
Resting in bed asleep. Call light in reach.
--- NOTE | 2020-11-23 03:51 | NUR ---
Resting in bed. Denies needs. Call light in reach.
[2020-11-23 05:17] VITALS: BP 119/84; PULSE 69; TEMP 97.7
--- NOTE | 2020-11-23 05:46 | NUR ---
Patient had uneventful night. Up to restroom this AM. Incontinent of urine. Cares provided. Resting in bed. Call light in reach.
--- NOTE | 2020-11-23 06:40 | NUR ---
Report given to SUDEEP Moraes
--- NOTE | 2020-11-23 07:00 | NUR ---
Patient lying in bed, call light in reach with bed alarm set. Patient is talkative this morning. Was afebrile last night. Received report from night nurse.
[2020-11-23 07:44] LABS: BASO # 0.1 (0.0-0.2); BASO % 0.8 % (0.0-2.0); EOS # 0.3 (0.0-0.7); EOS % 4.1 % (0-4.0); GRAN # 3.7 (1.4-6.5); GRAN % 57.5 % (42.2-75.2); HEMATOCRIT 43.4 % (42.0-52.0); HEMOGLOBIN 14.1 g/dl (13.5-18.0); LYMPH # 1.6 (1.2-3.4); LYMPH % 25.2 % (20.0-51.0); MEAN CELL VOLUME 96 fl (80.0-100.0); MEAN CORPUSCULAR HEMOGLOBIN 31 pg (27.0-31.0); MEAN CORPUSCULAR HGB CONC 33 g/dl (33.0-37.0); MEAN PLATELET VOLUME 10.8 fl (7.4-10.4); MONO # 0.8 (0.1-0.6); MONO % 12.1 % (1.7-9.3); PLATELET COUNT 199 K/mm3 (130-400); REDCELL DISTRIBUTION WIDTH-CV 14.3 % (11.5-14.5)
[2020-11-23 08:02] LABS: CALCIUM 9.8 mg/dL (8.4-10.2); CREATININE, serum 1.15 (0.66-1.25)
--- NOTE | 2020-11-23 13:37 | NUR ---
This nurse was not able to encourage patient to eat on his own, so with assistance patient did eat 50% of his meal and did drink all of his water. He is currently resting in his recliner, call light in reach and working with ST at this time. Will continue to monitor.
--- NOTE | 2020-11-23 15:44 | NUR ---
This nurse made sure to wash and dry patient laundry today. Clothes are now folded and placed in patient closet in his room.
--- NOTE | 2020-11-23 15:51 | NUR ---
This nurse returned patients necklace and 3 rings to patient. The Black stone ring was placed on patients right ring finger and the two gold rings with diamonds were placed on his left ring finger.
--- NOTE | 2020-11-23 16:02 | NUR ---
Carousel Attendant spoke with Melody at [facility] who advised they would accept referral. SW advised discharge is planned for .
[2020-11-23 17:08] VITALS: BP 112/85; PULSE 73; TEMP 97.9
--- NOTE | 2020-11-23 21:00 | NUR ---
PT RESTING IN BED. HOB ELEVATED TO TAKE PILLS W/O CHOKING. LT SIDED WEAKNESS. ASPHASIC/HX DEMENTIA. COOPERTAIVE AND CALM. READY FOR SLEEP. CALL IGHT IN REACH. BED ALARM SET.
[2020-11-24 05:58] VITALS: BP 110/81; PULSE 65; TEMP 97.5
--- NOTE | 2020-11-24 07:02 | NUR ---
awake resting in bed, bedside shift report received from SUDEEP Fishman
--- NOTE | 2020-11-24 07:30 | NUR ---
breakfast at bedside, assisted him with sitting up in bed to eat, is able to eat independently
--- NOTE | 2020-11-24 09:00 | NUR ---
speech therapy in to work with patient
--- NOTE | 2020-11-24 09:53 | NUR ---
out of room with physical therapy
--- NOTE | 2020-11-24 10:15 | NUR ---
back in bed after therapy, full assessment completed, see interventions for further info, denies need to void and has not been incontinent
--- NOTE | 2020-11-24 12:24 | NUR ---
viewed patient in room with pulling covers back and starting to move leg off of bed, states he needs to go to the bathroom, GREENHOUSE WORKER notified and will assist
--- NOTE | 2020-11-24 13:32 | NUR ---
out of room with physical therapy
--- NOTE | 2020-11-24 14:00 | NUR ---
occupational therapy in and assisting him with a shower
--- NOTE | 2020-11-24 15:41 | NUR ---
walked by room and chair alarm sounding and patient is out of recliner and sitting on bench seat, is confused about what he wants and was upset when i took his pens to help him up with his walker, then he didn't want to get back into bed, ambulated around to the other side of bed and into WC, finally encouraged him to get into bed, bed alarm on
--- NOTE | 2020-11-24 16:12 | NUR ---
Gelatin Maker Utility met with patient to provide copy of team conference notes. SW advised patient that he will be discharged tomorrow and that [facility] will provide services in his home. TORRES contacted Brie who advised she can cotton picker patient tomorrow. Brie asked that we call tomorrow with a time for cotton picker. TORRES will continue to follow.
[2020-11-24 17:21] VITALS: BP 147/70; PULSE 65; TEMP 98.2
--- NOTE | 2020-11-24 17:50 | NUR ---
bed alarm sounding and patient attempting to get out of bed, DRIVE SHAFT AND STEERING POST REPAIRER in and assisted him up to bathroom, voided and had small bowel movement, then back to bed and sitting up to have supper
--- NOTE | 2020-11-24 18:31 | NUR ---
bedside shift report given to SUDEEP Fishman
--- NOTE | 2020-11-25 00:49 | NUR ---
BED ALARM SOUNDING. PT ATTEMPTING TO GET UP. ASSISTED TO BR. NEEDS MUCH CUING FOR SAFETY. PT STOPS IN INTERIM OF DOING SOMETHING. DOESNT REMEBER WHAT TO DO NEXT. BRIEFS ARE DRY. VOIDED. ASSISTED BACK TO BED. PT RESTLESS AND ALITTLE AGITATED. ENC PT TO REST. REVIEWED TIME OF DAY AND PLAN FOR HOME AT DAYTIME. PT CALMERN BED ALARM SET. CALL LIGHT INREACH.
--- NOTE | 2020-11-25 01:20 | NUR ---
PT UP AGAIN. UNABLE TO DETERMINE NEEDS. GAVE TYLENOL AT THIS TIME. PT RUBBING RT LEG. CHECKED VS- ALL WNL. BRIEF DRY.
[2020-11-25 05:02] VITALS: BP 116/85; PULSE 59; TEMP 97.9
--- NOTE | 2020-11-25 07:03 | NUR ---
PT SLEEPING IN BED AT BEDSIDE SHIFT REPORT. BED IN LOW, CALL LIGHT WITHIN REACH, BED ALARM ON.
--- NOTE | 2020-11-25 08:00 | NUR ---
Participated in report and will be assisting primary nurse in patient care.
[2020-11-25] MEDS ORDERED: OMNICEF 300MG300 MG PO (10:24)
[2020-11-25] MEDS ORDERED: PROTONIX20 MG PO (10:25)
[2020-11-25] MEDS ORDERED: ELIQUIS 5MG PO (10:26)
--- NOTE | 2020-11-25 12:50 | NUR ---
THIS NURSE ATTEMPTED TO SET UP APPOINTMENT WITH DR. LACEY FOR PCP FU APPT. WAS UNABLE TO GET AHOLD OF SCHEDULING. PT'S INFORMED ME THAT THIS IS NO LONGER HIS PCP AND THAT DR. CRUZ IS HIS NEW PCP AND THEY HAVE SET UP AND APPOINTMENT FOR [facility] 2ND. PT HOME MEDICATION METHYLCOBALAMIN NASAL SPRAY GIVEN TO DAUGHTER BO FROM PHARMACY. INADVERNTENTLY FORGOT TO HAVE HER SIGN THAT SHE PICKED IT UP. WAS GIVEN TO DAUGHTER AT 1:10 P.M.
--- NOTE | 2020-11-25 13:13 | NUR ---
PT HEALTH SUMMARY, DISCHARGE SUMMARY, NAD HOME MEDS PRINTED AND REVIEWED WITH PT AND . STRESSED IMPORTANCE OF FU APPTS, REVIEWED MEDICATIONS AND CALLED OMNICEF TO PHARMACY OF CHOICE. BELONGINGS GATHERED BY NURSE AND PT TRANSPORTED VIA WC BY NURSE AND SURVEYOR AND SEATBELTED FOR RIDE HOME. PT AND RELATION DENIED QUESTIONS.
--- NOTE | 2020-11-25 13:17 | NUR ---
Discharge QIM scores were reviewed by the team. Code of 4 chosen for eating was determined by team discussion to be the most usual performance for this patient during the assessment period. Code of 4 chosen for toilet hygiene was determined by team discussion to be the most usual performance for this patient during the assessment period. Code of 4 chosen for toileting transfers was determined by team discussion to be the most usual performance for this patient during the assessment period. Code of 4 chosen for rolling left to right was determined by team discussion to be the most usual performance for this patient during the assessment period. Code of 6 chosen for sit to lying was determined by team discussion to be the most usual performance for this patient during the assessment period. Code of 6 chosen for lying to sitting on side of bed was determined by team discussion to be the most usual performance for this patient during the assessment period. Code of 4 for sit to stand was determined by team discussion to be the most usual performance for this patient during the assessment period. Code of 4 chosen for walk 50 feet w/ 2 turns was determined by team discussion to be the most usual performance for this patient during the assessment period.--Jackie Burgos,
--- NOTE | 2020-11-25 13:39 | NUR ---
Was administering ceftriaxone in left forearm INT, noticed infiltration around INT site and patient grimacing in pain. Stopped medication administration and notified doctor since patient was discharging and ordered medication PO.
--- NOTE | 2020-11-25 14:07 | NUR ---
Primary nurse was assisted with [phone] patient care by [employer] [facility] Nirali Quintero and [employer] instructor Alessia Kuhn RN-.
--- NOTE | 2020-11-25 17:02 | NUR ---
After discharge today, SW was contacted by [facility] who advised when they ran patient's information, he is actually enrolled in a [employer] Plan and they are out of network. TORRES contacted patient's daughter, Melanie who is agreeable to [facility], who is in network. TORRES contacted Berta at [facility] then faxed referral/orders. Berta states she believes they should be able to accept patient. TORRES updated Jackie, IPR Director and Keesha, Financial Counselor.
--- NOTE | 2020-11-26 10:29 | NUR ---
Vat Operator spoke with Berta at [facility] and they are going to start services with patient today. No additional needs at this time.
== END 2020-11-25 13:10 | disposition home health service (06) | DRG 56 ==
PROVIDERS: Physician Assistant; ADMIT Internal Medicine
DX: I69.351 Hemiplegia and hemiparesis following cerebral infarction affecting right dominant side (principal); I21.A1 Myocardial infarction type 2; N39.0 Urinary tract infection, site not specified; I69.322 Dysarthria following cerebral infarction; I69.320 Aphasia following cerebral infarction; I25.10 Atherosclerotic heart disease of native coronary artery without angina pectoris; I48.91 Unspecified atrial fibrillation; F03.90 Unspecified dementia, unspecified severity, without behavioral disturbance, psychotic disturbance, mood disturbance, and anxiety; N40.0 Benign prostatic hyperplasia without lower urinary tract symptoms; R31.9 Hematuria, unspecified; I12.9 Hypertensive chronic kidney disease with stage 1 through stage 4 chronic kidney disease, or unspecified chronic kidney disease; N18.9 Chronic kidney disease, unspecified; B96.89 Other specified bacterial agents as the cause of diseases classified elsewhere; M79.662 Pain in left lower leg; D72.829 Elevated white blood cell count, unspecified; E78.5 Hyperlipidemia, unspecified; Z95.0 Presence of cardiac pacemaker; Z87.891 Personal history of nicotine dependence; Z95.5 Presence of coronary angioplasty implant and graft; Z98.1 Arthrodesis status
CPT/HCPCS: 99222-AI; 99231-AI; 99232-AI; 99233-AI; 99239; A9585; J0696; J7030; J7040

== ENCOUNTER 2020-12-06 02:11 | Inpatient (IN) | payer MEDICARE, MEDICAID ==
[2020-12-06] VITALS (260 sets, daily range): BP systolic 108–138; BP diastolic 44–95; PULSE 58–73; TEMP 97.1–98; O2SAT 68–100
[~2020-12-06] VITALS: Ht 185.4 cm; Wt 74.8 kg
[~2020-12-06 02:11] MED LIST changes: +ELIQUIS 5MG PO; +OMNICEF 300MG300 MG PO
[2020-12-06 02:39] LABS: BASO # 0.1 (0.0-0.2); BASO % 1.1 % (0.0-2.0); EOS # 0.2 (0.0-0.7); EOS % 4.7 % (0-4.0); GRAN # 1.7 (1.4-6.5); GRAN % 36.8 % (42.2-75.2); HEMATOCRIT 49.6 % (42.0-52.0); LYMPH # 2.1 (1.2-3.4); LYMPH % 47.2 % (20.0-51.0); MEAN CELL VOLUME 95 fl (80.0-100.0); MEAN CORPUSCULAR HEMOGLOBIN 31 pg (27.0-31.0); MEAN CORPUSCULAR HGB CONC 32 g/dl (33.0-37.0); MEAN PLATELET VOLUME 10.5 fl (7.4-10.4); MONO # 0.5 (0.1-0.6); PLATELET COUNT 230 K/mm3 (130-400); REDCELL DISTRIBUTION WIDTH-CV 13.4 % (11.5-14.5)
[2020-12-06 02:44] LABS: INR 1.3 (0.8-3.0); PROTHROMBIN TIME 14.2 SECONDS (9.7-12.8)
[2020-12-06 02:46] LABS: PARTIAL THROMBOPLASTIN TIME 23.3 SECONDS (26.0-37.0)
[2020-12-06 02:50] LABS: COLLECTION METHOD CATHETER
[2020-12-06 03:00] LABS: ALBUMIN 3.9 gm/dL (3.5-5.0); BILIRUBIN,TOTAL 1.4 mg/dL (0.0-1.0); CALCIUM 10.4 mg/dL (8.4-10.2); CREATININE, serum 1.24 (0.66-1.25); POTASSIUM 3.9 mmol/L (3.4-5.0); TOTAL PROTEIN 7.6 gm/dL (6.4-8.2)
[2020-12-06 03:01] LABS: TROPONIN-I 0.134 ng/mL (0.000-0.035)
[2020-12-06 03:07] LABS: MUCOUS Present /lpf; PH 6 (5-8); SQUAMOUS EPITHELIAL None Seen /hpf; URINE APPEARANCE Hazy; URINE BACTERIA None Seen /hpf; URINE BILIRUBIN Negative (NEGATIVE); URINE BLOOD Negative (NEGATIVE); URINE COLOR Amber; URINE GLUCOSE Negative (NEGATIVE); URINE KETONE Negative (NEGATIVE); URINE LEUKOCYTE ESTERASE Negative (NEGATIVE); URINE NITRATE Negative (NEGATIVE); URINE PROTEIN(semi-quant) Negative (NEGATIVE); URINE RBC None Seen /hpf; URINE UROBILINOGEN >=4.0 mg/dL (NEGATIVE); URINE WBC 0-2 /hpf
--- NOTE | 2020-12-06 06:15 | NUR ---
Received report from ED nurse, Eusbeia.
--- NOTE | 2020-12-06 06:35 | NUR ---
No facial droop noted during initial assessment. Patient asked to smile evenly, and raise eyebrows; both of which are symmetrical. When asked if patient could puff cheeks, he replies, "No, probably not," clearly and without slurring.
--- NOTE | 2020-12-06 06:35 | NUR ---
Patient's belongings include glasses, dentures (partial lower, full plate upper), street clothes, and a gold necklace. Patient denies having hearing aids or other jewelry. Belongings placed in patient's closet.
--- NOTE | 2020-12-06 06:35 | NUR ---
Patient arrives to ICU bed 7 via ED stretcher. Patient is transferred to ICU bed using draw sheet and x3 assistance. Patient is alert, and partially oriented. Difficult to accurately assess level of orientation due to aphasia. Patient follows all verbal commands and is able to lift and hold bilateral upper and lower extremities. Pupils are equal and reactive; able to track movements when instructed. Initial vitals within normal limits. Patient denies any pain or discomfort. A stage II ulcer noted to the patient's left buttock; it is approximately pea-sized with a yellow wound bed and is left open to air. In the sacral region, a stage I ulcer is noted, measuring approximately 0.5cm. No other skin issues noted. BRIGETTE Whittaker, aware of patient's arrival.
--- NOTE | 2020-12-06 07:15 | NUR ---
RECEIVED REPORT FROM SUDEEP HURLEY. PT RESTING EASILY ON 5L VIA NC. CALL LIGHT WITHIN REACH. VSS.
--- NOTE | 2020-12-06 07:50 | NUR ---
Report given to SUDEEP Daigle. Care transferred at this time.
--- NOTE | 2020-12-06 08:00 | NUR ---
DR ELIZABETH AND DR CHOW AT BEDSIDE FOR ASSESSMENT.
--- NOTE | 2020-12-06 11:30 | NUR ---
NURSING BEDSIDE SWALLOW PERFORMED, NO ISSUES NOTED WITH THI LIQUIDS OR APPLESAUCE. PT USES STRAW WITH EASE. FOLLOWS SIMPLE COMMANDS. DR IGLESIAS NOTIFIED.
[2020-12-06 11:49] LABS: ARTERIAL BLD GAS O2 SATURATION 98.6 % (92-100); ARTERIAL BLD GAS TCO2 CT 21.6; ARTERIAL BLOOD GAS BASE EXCESS -3.5 (-2-2); ARTERIAL BLOOD GAS HCO3 20.5 meq/L (22-26); ARTERIAL BLOOD GAS PCO2 34.3 mmHg (35-45); ARTERIAL BLOOD GAS PO2 145.6 mmHg (80-100)
--- NOTE | 2020-12-06 12:43 | NUR ---
Chaplain walter for patient while standing outside of door.
--- NOTE | 2020-12-06 13:10 | NUR ---
DR LOPEZ AT BEDSIDE FOR ASSESSMENT. DISCUSSED TROPONIN TREND WITH PHYSICIAN. PHYSICIAN STATES IS NOT CONCERNED AT THIS TIME. PHYSICIAN AWARE OF ECHO ORDERED. NO OTHER ORDERS AT THIS TIME.
--- NOTE | 2020-12-06 14:00 | NUR ---
DR IGLESIAS, RN, AND BUNNY RN WITH PALLIATIVE CARE SPOKE WITH FAMILY IN PERSON AND ON THE PHONE ABOUT PT'S CURRENT STATUS AND POC.
--- NOTE | 2020-12-06 18:05 | NUR ---
REPORT GIVEN TO SUDEEP RODGERS ON MEDIAL. PT TO TRANSFER 354 VIA ON 2L VIA [place]. ALL PERSONAL BELONGINGS SENT WITH PT.
--- NOTE | 2020-12-06 18:53 | NUR ---
Pt arrives to medical unit rm [id number] from ICU via WC accompanied by SUDEEP Hanna. Pt resting in bed now, alert, denies needs at this time. Report with SDUEEP Stewart. Call light in reach.
--- NOTE | 2020-12-06 20:10 | NUR ---
Patient assessed at this time. Alert and oriented with confusion. Denies having pain and discomfort. High fall risk precautions in place. Peripheral INTs to right wrist and left forearm. Sites both without redness, warmth, swelling, and pain. Denies having SOB and dyspnea. On oxygen at 1.5 L/min via NC. LS CTA. Respirations even and unlabored. HRR. Telemetry in place. Capillary refill less than 3 seconds. Non-tenting skin turgor. BSAx4. Abdomen soft and non-tender. No edema. Voices no questions, needs, or concerns at this time. Speached slurred but understandable. Resting in bed with call light within reach.
[2020-12-07 00:30] VITALS: BP 113/67; PULSE 94; TEMP 97.8
[2020-12-07 05:08] VITALS: BP 122/74; PULSE 74; TEMP 97.7
--- NOTE | 2020-12-07 06:01 | NUR ---
Patient has been resting in bed with call light within reach. Has denied having pain and discomfort this shift. Patient incontinent this shift and pericare provided. Neuro checks stable for patient. High fall risk precautions in place.
[2020-12-07 07:20] LABS: BASO % 0.7 % (0.0-2.0); EOS # 0.2 (0.0-0.7); EOS % 2.8 % (0-4.0); GRAN # 3.3 (1.4-6.5); GRAN % 57.3 % (42.2-75.2); HEMATOCRIT 50.3 % (42.0-52.0); HEMOGLOBIN 16.4 g/dl (13.5-18.0); LYMPH # 1.6 (1.2-3.4); LYMPH % 28.6 % (20.0-51.0); MEAN CELL VOLUME 95 fl (80.0-100.0); MEAN CORPUSCULAR HEMOGLOBIN 31 pg (27.0-31.0); MEAN CORPUSCULAR HGB CONC 33 g/dl (33.0-37.0); MEAN PLATELET VOLUME 10.7 fl (7.4-10.4); MONO # 0.6 (0.1-0.6); MONO % 10.4 % (1.7-9.3); PLATELET COUNT 191 K/mm3 (130-400); RED BLOOD COUNT 5.27 M/mm3 (4.20-5.60); REDCELL DISTRIBUTION WIDTH-CV 13.7 % (11.5-14.5)
[2020-12-07 07:31] LABS: BILIRUBIN,TOTAL 1.3 mg/dL (0.0-1.0); CALCIUM 10.3 mg/dL (8.4-10.2); CREATININE, serum 0.98 (0.66-1.25); POTASSIUM 3.8 mmol/L (3.4-5.0); TOTAL PROTEIN 7.7 gm/dL (6.4-8.2)
[2020-12-07 08:00] VITALS: BP 117/78; PULSE 74; TEMP 97.9
[2020-12-07 11:23] VITALS: BP 124/77; PULSE 66; TEMP 98
--- NOTE | 2020-12-07 12:39 | NUR ---
Patient alert and oriented. denies any pain. incontinent of urine. two different stage 2 pressure ulcer on the sacral region. Dressing applied on the sacral ulcer. RN provided update to - Brie. Patient authorize to be the visitor during this visit. RN called to inform her she can visit. patient resting in bed at this moment.
--- NOTE | 2020-12-07 13:07 | NUR ---
Per EEG report, there are no abnormalities found.
[2020-12-07 15:15] VITALS: BP 116/79; PULSE 61; TEMP 97.9
--- NOTE | 2020-12-07 16:05 | NUR ---
Mold Worker met with patient to discuss discharge planning. Patient lives in [place] with his , Brie (ph#[phone]) and was recently discharged from [facility]. Patient currently receives [facility]. Patient sees Dr. Ybarra for primary care. Patient has a cane and walker at home. PT/OT have been ordered for patient. TORRES contacted Melody at [facility] who advised that no issues had been reported to her from staff. SW contacted patient's , Brie to review discharge plan. Brie states she would like for patient to return home with services if possible. Brie will be in to visit tomorrow.
--- NOTE | 2020-12-07 18:05 | NUR ---
Patient spoke to daughter this afternoon. MRI was done today, refer to the imaging for details. Patient refused dinner. RN offered snacks to patient. Patient resting in bed comfortably
--- NOTE | 2020-12-07 19:20 | NUR ---
Patient assessed at this time. Alert and oriented with confusion. Denies having pain and discomfort at this time. Peripheral INT to right wrist and left forearm. Denies having SOB and dyspnea. On oxygen at 1.5 L/min via NC. LS CTA. Respirations even and unlabored. HRR. Telemetry in place. Capillary refill less than 3 seconds. Non-tenting skin turgor. BSAx4. Abdomen soft and non-tender. Incontinent of bladder. Pericare provided. Dressing to sore on coccyx is CDI. No edema. Voices no questions, needs, or concerns at this time. Poor oral intake. Encouraged nutritional supplement. Resting in bed with call light within reach. High fall risk precautions in place.
[2020-12-07 20:56] VITALS: BP 106/68; PULSE 83; TEMP 97.9
[2020-12-08] VITALS (7 sets, daily range): BP systolic 95–112; BP diastolic 61–89; PULSE 62–71; TEMP 97.3–98.1
--- NOTE | 2020-12-08 06:11 | NUR ---
Patient has been resting in bed with call light within reach. Has denied having pain and discomfort when asked. Patient has been incontinent of bladder this shift. Perineal hygiene care provided. Dressing to coccyx CDI. Patient repositioned in bed. High fall risk precautions remain in place. Resting in bed with call light within reach.
--- NOTE | 2020-12-08 07:00 | NUR ---
Assessment as charted. Pt. resting in bed. Pt reoriented to time and place. O2 on @ 1.5 L via NC. Breath sounds clear bilat. Telemetry on, Pt voices no acute concerns. INT site to Lt. a.c. intact, no redness, INT site to Rt. hand intact no redness. Call light within reach.
[2020-12-08 07:03] LABS: BASO # 0.1 (0.0-0.2); BASO % 0.9 % (0.0-2.0); EOS # 0.2 (0.0-0.7); EOS % 2.9 % (0-4.0); GRAN # 2.6 (1.4-6.5); GRAN % 47.7 % (42.2-75.2); LYMPH # 1.9 (1.2-3.4); LYMPH % 35.4 % (20.0-51.0); MEAN CELL VOLUME 95 fl (80.0-100.0); MEAN CORPUSCULAR HEMOGLOBIN 30 pg (27.0-31.0); MEAN CORPUSCULAR HGB CONC 32 g/dl (33.0-37.0); MEAN PLATELET VOLUME 10.5 fl (7.4-10.4); MONO # 0.7 (0.1-0.6); MONO % 12.9 % (1.7-9.3); PLATELET COUNT 234 K/mm3 (130-400); RED BLOOD COUNT 4.95 M/mm3 (4.20-5.60); REDCELL DISTRIBUTION WIDTH-CV 13.7 % (11.5-14.5)
[2020-12-08 07:24] LABS: CALCIUM 9.9 mg/dL (8.4-10.2); CREATININE, serum 1.11 (0.66-1.25); POTASSIUM 3.9 mmol/L (3.4-5.0)
--- NOTE | 2020-12-08 08:00 | NUR ---
Neuro checks completed. Pt reorientated to time and place. Pt able to follow all verbal commands. Call light within reach.
--- NOTE | 2020-12-08 08:45 | NUR ---
Shift assessment complete. Pt lying in bed with eyes closed. Denies pain or other needs. INTs to left AC and right wrist w/o S/S complication. Wearing NC at 1.5 lpm O2 at this time. Pt answers yes and no questions but is unable to come up with other words. Follows commands. Hand french polisher weak but equal bilaterally. Heart RRR. Lungs CTA. Call light in reach and bed alarm on.
--- NOTE | 2020-12-08 09:30 | NUR ---
Notified by MOTORCYLES FINAL INSPECTOR student that pt on RA at this time per hospitalist verbal order. Rechecking sats in 30 minutes to determine if O2 needed.
--- NOTE | 2020-12-08 15:03 | NUR ---
PT ABLE TO WALK APPROX 8-10 FEET WITH WALKER BEFORE NEEDING TO SIT DOWN IN WHEELCHAIR. SPO2 96-98% WITH EXERCISE. PT RESTED IN CHAIR FOR A FEW MINUTES BEFORE WALKING BACK TO BED. SPO2 AT REST ON ROOM AIR 94%
--- NOTE | 2020-12-08 16:53 | NUR ---
Department Of Natural Resources Officer collaborated with REE Goldman and KWESI Padgett and their recommendation for patient after their afternoon session is SNF. TORRES spoke with patient's , Brie who agrees that she does not feel patient is safe to return home at this time. Brie encouraged TORRES to speak with patient's daughter/DPOA-HC, Melanie. TORRES contacted Melanie who would like referral sent to [facility]. Melanie will follow up on a second preference. TORRES contacted Jeanine at [facility] and faxed referral. TORRES also updated BRIGETTE Garcia. TORRES will continue to follow.
--- NOTE | 2020-12-08 19:40 | NUR ---
Patient assessed at this time. Alert and oriented to self. Staff anticipates needs, as patient does not make needs known. Denies having pain and discomfort. Peripheral INT to right wrist and left AC. Both sites flushed and are without redness, warmth, swelling, and pain. Denies having SOB and dyspnea. LS CTA. Respirations even and unlabored. On room air. HRR. Telemetry in place. Capillary refill less than 3 seconds. Non-tenting skin turgor. BSAx4. Abdomen soft and non-tender. Incontinent of urine. Pericare provided. Dressing to sores on bottom are CDI. Repositioned in bed. No edema. Voices no questions, needs, or concerns at this time. Resting in bed with call light within reach.
--- NOTE | 2020-12-08 20:36 | NUR ---
This nurse was asked if IPR had found a gold ring from this patient. This nurse called and spoke with SUDEEP Hidalgo and she stated that she had given the ring to Security to hold for the patient's family to pickling operator. This nurse called Security and they delivered the ring to this nurse. This nurse then gave the ring to SUDEEP Cain as she stated that she would deliver it to the patient.
[2020-12-09 05:05] VITALS: BP 112/78; PULSE 67; TEMP 98
--- NOTE | 2020-12-09 05:35 | NUR ---
Patient has been resting in bed with call light within reach. Voices no questions, needs, or concerns at this time. Denies having pain and discomfort when asked. Staff assists with repositioning in bed, as well as changing depends due to urinary incontinence. Perineal hygiene care provided.
[2020-12-09 07:31] LABS: BASO # 0.1 (0.0-0.2); BASO % 1.1 % (0.0-2.0); EOS # 0.1 (0.0-0.7); EOS % 2.2 % (0-4.0); GRAN # 1.8 (1.4-6.5); GRAN % 39.6 % (42.2-75.2); HEMATOCRIT 44.2 % (42.0-52.0); HEMOGLOBIN 14.5 g/dl (13.5-18.0); LYMPH % 45.4 % (20.0-51.0); MEAN CELL VOLUME 94 fl (80.0-100.0); MEAN CORPUSCULAR HEMOGLOBIN 31 pg (27.0-31.0); MEAN CORPUSCULAR HGB CONC 33 g/dl (33.0-37.0); MEAN PLATELET VOLUME 10.3 fl (7.4-10.4); MONO # 0.5 (0.1-0.6); MONO % 11.5 % (1.7-9.3); PLATELET COUNT 214 K/mm3 (130-400); RED BLOOD COUNT 4.68 M/mm3 (4.20-5.60); REDCELL DISTRIBUTION WIDTH-CV 13.8 % (11.5-14.5)
[2020-12-09 08:00] LABS: CALCIUM 9.6 mg/dL (8.4-10.2); CREATININE, serum 1.21 (0.66-1.25); POTASSIUM 3.8 mmol/L (3.4-5.0)
[2020-12-09 08:28] VITALS: BP 117/75; PULSE 65; TEMP 98.2
--- NOTE | 2020-12-09 09:27 | NUR ---
PT IS IN BED RESTING AT THIS TIME. PT HAS NO COMPLAINTS. NO FURTHER CONCERNS AT THIS TIME. STATES THAT THE PATIENT IS BACK TO BASELINE, HOWEVER, PT CONSULTED AND SUGGESTS [facility]. NO FURTHER CONCERNS.
[2020-12-09] MEDS ORDERED: ELIQUIS 5MG PO (10:31)
[2020-12-09 11:51] VITALS: BP 103/72; PULSE 66; TEMP 98.2
--- NOTE | 2020-12-09 12:03 | NUR ---
First visit from the radio frequency design engineer. No needs right now.
--- NOTE | 2020-12-09 13:37 | NUR ---
PT PULLED OUT RIGHT HAND IV. LEFT AC INT STILL INTACT. DO NOT NEED TWO IV ACCESS POINTS, WILL NOT REPLACE THE RIGHT HAND INT AT THIS TIME. NO FURTHER CONCERNS.
--- NOTE | 2020-12-09 16:52 | NUR ---
Occup Ther faxed updates to Jeanine at [facility] who advised they are good to accept patient. SW contacted patient's daughter, Melanie who expressed some hesitancy about patient going to [facility] due to visitation policy. SW facilitated a phone call between Melanie and Jeanine at [facility]. SW also spoke with Hospitalist and advised Melanie would like to speak with them as well about discharge planning and medical updates.
[2020-12-09 17:12] VITALS: BP 109/75; PULSE 65; TEMP 98.1
[2020-12-09 19:35] VITALS: BP 112/73; PULSE 69; TEMP 98.2
--- NOTE | 2020-12-09 20:00 | NUR ---
Bedside shift report received from Sarah. Assessment complete. Patient is resting in bed and arouses to voice. He is not oriented; He cannot repeat 3 numbers listed in a row. He does follow commands slowly and he swallows pills whole with thin liquids. A stage II pressure ulcer is observed on his coccyx and new mepilex dressing is applied. Patient is repositioned on his left side. Call light in reach, bed alarm set.
[2020-12-09 23:42] VITALS: BP 110/74; PULSE 60; TEMP 98.1
[2020-12-10 03:23] VITALS: BP 99/69; PULSE 65; TEMP 97.7
--- NOTE | 2020-12-10 06:10 | NUR ---
Patient has had a restful night with no complaints. He was incontinent of a large amount of urine in his brief one time. He impulsively tried to get out of bed, setting off his alarm, once as well. He is still pleasantly confused and neuro checks have remained consistent throughout the night.
--- NOTE | 2020-12-10 06:30 | NUR ---
REPORT RCVD FROM SUDEEP DELA CRUZ. PT ASLEEP AT THIS TIME. WILL ASSESS WHEN AWAKE. NO FURTHER CONCERNS
[2020-12-10 06:57] LABS: ALBUMIN 3.4 gm/dL (3.5-5.0); BILIRUBIN,TOTAL 1.2 mg/dL (0.0-1.0); CALCIUM 9.8 mg/dL (8.4-10.2); CREATININE, serum 1.1 (0.66-1.25); POTASSIUM 3.7 mmol/L (3.4-5.0); TOTAL PROTEIN 6.8 gm/dL (6.4-8.2)
[2020-12-10 08:08] VITALS: BP 118/74; PULSE 63; TEMP 98.3
--- NOTE | 2020-12-10 10:04 | NUR ---
PT ASSSESSMENT COMPLETED. PT IS BACK TO BASELINE COGNITIVELY, STILL CANNOT COME UP WITH WORDS FOR NORMAL EVERYDAY TERMS. PT UNABLE TO POSITIVELY ANSWER ALERT AND ORIENTATION QUESTIONS. NO FURTHER CONCERNS AT THIS TIME.
[2020-12-10 13:50] VITALS: BP 104/70; PULSE 65; TEMP 98.1
--- NOTE | 2020-12-10 14:28 | NUR ---
Cob Sawyer attended clinical rounds with the team and patient's daughter, Melanie is on speakerphone. TORRES followed up with Melanie who advised she and the family have decided to pursue [facility]. TORRES contacted Jeanine at [facility] and confirmed they can accept today. Jeanine advised she has also talked with Melanie today. TORRES collaborated with Jeanine to set transport time for 1530. TORRES met with patient and patient's to provide transport time. Both are in agreement with discharge to [facility]. TORRES contacted Melanie to provide transport time. TORRES faxed discharge orders and most recent COVID testing. No additional needs at this time.
--- NOTE | 2020-12-10 15:19 | NUR ---
PT IS DRESSED AND READY FOR [facility]SF[facility] TO [facility]. NO FURTHER CONCERNS, IS CURRENTLY AT BEDSIDE.
[2020-12-10 16:15] VITALS: BP 104/70; PULSE 65; TEMP 98.1
== END 2020-12-10 16:42 | DRG 69 ==
LOC: COL.ER 02:11 → MEDICAL 04:35 → ICU 04:35 → MEDICAL 18:52
PROVIDERS: Emergency Medicine; Hospitalist; Physician Assistant; Student in an Organized Health Care Education/Training Program; ADMIT Student in an Organized Health Care Education/Training Program
DX: G45.9 Transient cerebral ischemic attack, unspecified (principal); J96.01 Acute respiratory failure with hypoxia; I21.A1 Myocardial infarction type 2; I50.32 Chronic diastolic (congestive) heart failure; G93.40 Encephalopathy, unspecified; I69.320 Aphasia following cerebral infarction; F03.90 Unspecified dementia, unspecified severity, without behavioral disturbance, psychotic disturbance, mood disturbance, and anxiety; I25.10 Atherosclerotic heart disease of native coronary artery without angina pectoris; I11.0 Hypertensive heart disease with heart failure; E78.5 Hyperlipidemia, unspecified; I95.9 Hypotension, unspecified; R29.810 Facial weakness; N40.0 Benign prostatic hyperplasia without lower urinary tract symptoms; R29.704 NIHSS score 4; H40.9 Unspecified glaucoma; I48.0 Paroxysmal atrial fibrillation; K21.9 Gastro-esophageal reflux disease without esophagitis; E83.52 Hypercalcemia; Z20.822 Contact with and (suspected) exposure to COVID-19; Z87.891 Personal history of nicotine dependence; Z79.82 Long term (current) use of aspirin; Z79.01 Long term (current) use of anticoagulants; Z95.5 Presence of coronary angioplasty implant and graft; Z95.0 Presence of cardiac pacemaker
CPT/HCPCS: 99223-AI; 99232-AI; 99239; A9585; C9113; J1650; Q9967

== ENCOUNTER → 2020-12-11 | Outpatient (REF) ==
[2020-12-11 16:03] LABS: COLLECTION METHOD CLEAN CATCH
[2020-12-11 16:22] LABS: MUCOUS Present /lpf; PH 7 (5-8); URINE APPEARANCE Cloudy; URINE BACTERIA None Seen /hpf; URINE BILIRUBIN Negative (NEGATIVE); URINE BLOOD 3+ (NEGATIVE); URINE COLOR Amber; URINE GLUCOSE Negative (NEGATIVE); URINE KETONE Negative (NEGATIVE); URINE LEUKOCYTE ESTERASE Negative (NEGATIVE); URINE NITRATE Negative (NEGATIVE); URINE PROTEIN(semi-quant) 2+ (NEGATIVE); URINE RBC >50 /hpf; URINE UROBILINOGEN >=4.0 mg/dL (NEGATIVE)
== END ==
LOC: ZCOL.LAB 16:02
PROVIDERS: Family Medicine
DX: N39.0 Urinary tract infection, site not specified (principal)

== ENCOUNTER → 2020-12-22 | Outpatient (CLI) | payer MEDICARE, MEDICAID | LOC: COL.RAD 18:04 | DX: M51.36 Other intervertebral disc degeneration, lumbar region (principal); M47.816 Spondylosis without myelopathy or radiculopathy, lumbar region ==

== ENCOUNTER 2021-10-24 08:41 | Day surgery (SDC) | payer MEDICARE, MEDICAID ==
[~2021-10-24] VITALS: Ht 190.7 cm; Wt 74.3 kg
[2021-10-24] VITALS (9 sets, daily range): BP systolic 115–127; BP diastolic 92–99; PULSE 59–71; TEMP 97.6
[~2021-10-24 08:41] MED LIST changes: -FLOMAX 0.40.4 MG/CAP; +FLOMAX 0.40.4 MG/CAP PO; +LEXAPRO 5MG5 MG PO
[2021-10-24 09:39] LABS: HEMOGLOBIN 15.5 g/dl (13.5-18.0); MEAN CELL VOLUME 94 fl (80.0-100.0); MEAN CORPUSCULAR HEMOGLOBIN 31 pg (27-31); MEAN CORPUSCULAR HGB CONC 33 g/dl (33.0-37.0); MEAN PLATELET VOLUME 11.4 fl (7.4-10.4); PLATELET COUNT 126 K/mm3 (130-400); RED BLOOD COUNT 4.98 M/mm3 (4.20-5.60); REDCELL DISTRIBUTION WIDTH-CV 14.8 % (11.5-14.5)
[2021-10-24 09:46] LABS: INR 1.7 (0.8-3.0); PROTHROMBIN TIME 18.5 SECONDS (9.7-12.8)
[2021-10-24 09:49] LABS: CALCIUM 9.9 mg/dL (8.4-10.2); CREATININE, serum 1.08 mg/dL (0.72-1.25); PARTIAL THROMBOPLASTIN TIME 29.6 SECONDS (26.0-37.0)
[2021-10-24] MEDS ORDERED: ARICEPT10 MG PO (09:56)
[2021-10-24] MEDS ORDERED: NAMENDA 10MG TA10 MG PO (09:56)
[2021-10-24] MEDS ORDERED: COZAAR 50MG50 MG/TAB PO (09:57)
[2021-10-24] MEDS ORDERED: LEXAPRO 5MG5 MG PO (09:57)
[2021-10-24] MEDS ORDERED: [UNRECOGNIZED DRUG - OTHER] NAS (09:59)
[2021-10-24] MEDS ORDERED: OMEGA-3 1000 MG1 CAP PO (10:00)
[2021-10-24] MEDS ORDERED: PROTONIX 40MG T40 MG PO (10:00)
[2021-10-24] MEDS ORDERED: MIRALAX PA17 GM/Dose PO (10:01)
[2021-10-24] MEDS ORDERED: FLOMAX 0.40.4 MG/CAP PO (10:01)
[2021-10-24] MEDS ORDERED: CENTRUM SILVER1 TAB PO (10:02)
[2021-10-24] MEDS ORDERED: COSOPT 2%-0.5%10 ML OU (10:02)
[2021-10-24] MEDS ORDERED: COLACE 100100 MG/CAP PO (10:02)
--- NOTE | 2021-10-24 10:28 | NUR ---
SEE MERGE FOR ALL MEDICATION ADMINISTRATION TIMES, INTRA AND POST SEDATION ASSESSMENTS
--- NOTE | 2021-10-24 14:20 | NUR ---
Air was removed from TR band in 2 ml increments with no bleeding or complications. Site dressed with folded 2x2 and bandaid. INT DC'd with catheter intact. DC instructions reviewed with pt, daughter Melanie, and . All express understanding. He was assisted to dress and into wheelchair x2 assist. Pt assisted out by wheelchair to waiting room to wait with family for [facility] bus. His daughter states she will not leave until pt and are on the bus.
== END 2021-10-24 14:20 | disposition home or self-care (01) ==
LOC: COL.CAR 08:41
PROVIDERS: Internal Medicine Cardiovascular Disease
DX: I25.10 Atherosclerotic heart disease of native coronary artery without angina pectoris (principal); I25.84 Coronary atherosclerosis due to calcified coronary lesion; I11.0 Hypertensive heart disease with heart failure; I50.20 Unspecified systolic (congestive) heart failure; I42.9 Cardiomyopathy, unspecified; I48.91 Unspecified atrial fibrillation; E78.5 Hyperlipidemia, unspecified; I08.3 Combined rheumatic disorders of mitral, aortic and tricuspid valves; I49.5 Sick sinus syndrome; F03.90 Unspecified dementia, unspecified severity, without behavioral disturbance, psychotic disturbance, mood disturbance, and anxiety; Z95.0 Presence of cardiac pacemaker; Z99.3 Dependence on wheelchair; Z79.899 Other long term (current) drug therapy; Z79.01 Long term (current) use of anticoagulants; Z79.82 Long term (current) use of aspirin; Z95.818 Presence of other cardiac implants and grafts
CPT/HCPCS: J1644; J3010; J7030; Q9967

== ENCOUNTER → 2022-02-03 | Outpatient (CLI) | payer MEDICARE, MEDICAID ==
[~2022-02-03] MED LIST changes: +CENTRUM SILVER1 TAB PO; +DULCOLAX TAB5 MG PO; +LASIX 20MG TABL20 MG PO; +LIDODERM 5% PATC1 EA TP; +NAMENDA 10MG TA10 MG PO; +OMEGA-3 1000 MG1 CAP PO; +PROTONIX 40MG T40 MG PO; +[UNRECOGNIZED DRUG - OTHER] NAS
[2022-02-03 13:44] LABS: ALBUMIN 3.1 gm/dL (3.4-4.8); BILIRUBIN,TOTAL 1.3 mg/dL (0.2-1.2); CALCIUM 9.3 mg/dL (8.4-10.2); CHOLESTEROL RISK RATIO 2.4; CREATININE, serum 0.94 mg/dL (0.72-1.25); POTASSIUM 3.8 mmol/L (3.5-4.5); THYROID STIMULATING HORMONE 0.607 uIU/mL (0.350-4.940); TOTAL PROTEIN 6.5 gm/dL (6.2-8.1)
[2022-02-03 13:46] LABS: BASO % 0.8 % (0.0-2.0); EOS # 0.1 K/mm3 (0.0-0.7); EOS % 3.1 % (0.0-4.0); GRAN # 1.4 K/mm3 (1.4-6.5); GRAN % 38.4 % (42.2-75.2); HEMATOCRIT 43.8 % (42.0-52.0); HEMOGLOBIN 14.3 g/dl (13.5-18.0); LYMPH # 1.7 K/mm3 (1.2-3.4); LYMPH % 48.2 % (20.0-51.0); MEAN CELL VOLUME 100 fl (80.0-100.0); MEAN CORPUSCULAR HEMOGLOBIN 33 pg (27-31); MEAN CORPUSCULAR HGB CONC 33 g/dl (33.0-37.0); MEAN PLATELET VOLUME 11.7 fl (7.4-10.4); MONO # 0.3 K/mm3 (0.1-0.6); MONO % 9.5 % (1.7-9.3); PLATELET COUNT 142 K/mm3 (130-400); RED BLOOD COUNT 4.39 M/mm3 (4.20-5.60)
== END ==
LOC: ZCOL.LAB 13:30
PROVIDERS: Family Medicine
DX: Z79.899 Other long term (current) drug therapy (principal); I10 Essential (primary) hypertension

== ENCOUNTER 2022-02-21 04:34 | Inpatient (IN) | payer MEDICARE, MEDICAID ==
[~2022-02-21] VITALS: Ht 188 cm; Wt 78.0 kg
[2022-02-21 05:48] LABS: BASO % 0.8 % (0.0-2.0); EOS # 0.1 K/mm3 (0.0-0.7); EOS % 1.8 % (0.0-4.0); GRAN # 1.4 K/mm3 (1.4-6.5); GRAN % 37.4 % (42.2-75.2); HEMATOCRIT 49.4 % (42.0-52.0); HEMOGLOBIN 15.7 g/dl (13.5-18.0); LYMPH # 1.9 K/mm3 (1.2-3.4); LYMPH % 49.5 % (20.0-51.0); MEAN CELL VOLUME 100 fl (80.0-100.0); MEAN CORPUSCULAR HEMOGLOBIN 32 pg (27-31); MEAN CORPUSCULAR HGB CONC 32 g/dl (33.0-37.0); MEAN PLATELET VOLUME 11.3 fl (7.4-10.4); MONO # 0.4 K/mm3 (0.1-0.6); MONO % 10.2 % (1.7-9.3); PLATELET COUNT 125 K/mm3 (130-400); RED BLOOD COUNT 4.92 M/mm3 (4.20-5.60); REDCELL DISTRIBUTION WIDTH-CV 14.6 % (11.5-14.5)
[2022-02-21 05:57] LABS: INR 3.9 (0.8-3.0); PROTHROMBIN TIME 43.3 SECONDS (9.7-12.8)
[2022-02-21 06:05] LABS: C-REACTIVE PROTEIN 0.68 mg/dL (0.00-0.50); CALCIUM 9.5 mg/dL (8.4-10.2); POTASSIUM 3.6 mmol/L (3.5-4.5)
[2022-02-21 06:06] LABS: ARTERIAL BLD GAS O2 SATURATION 93.4 % (92-100); ARTERIAL BLOOD GAS BASE EXCESS -1.8 (-2-2); ARTERIAL BLOOD GAS HCO3 21.1 meq/L (22-26); ARTERIAL BLOOD GAS PCO2 31.3 mmHg (35-45); ARTERIAL BLOOD GAS PO2 69.4 mmHg (80-100); ARTERIAL BLOOD GAS pH 7.45 (7.35-7.45)
[2022-02-21 06:20] LABS: TROPONIN-I 0.416 ng/mL (0.00-0.033)
[2022-02-21 06:29] LABS: ALBUMIN 3.4 gm/dL (3.4-4.8); BILIRUBIN,TOTAL 1.3 mg/dL (0.2-1.2); CREATININE, serum 1.18 mg/dL (0.72-1.25); TOTAL PROTEIN 6.8 gm/dL (6.2-8.1)
--- NOTE | 2022-02-21 10:49 | NUR ---
Recieved report from cecil SHEETS .
--- NOTE | 2022-02-21 11:00 | NUR ---
PT ARRIVED ON ED STRETCHER. PT IS UNABLE TO ANSWER ORIENTATION QUESTIONS, GRUNTS AND NODS HEAD IN AGREEANCE. PT HAS ADVANCED DEMENTIA. APPEARS TO BE IN NO PAIN.VSS.
--- NOTE | 2022-02-21 11:00 | NUR ---
ASSESSMENT COMPLETE. PT HAS A STAGE II ULCER ON COCCYX, A PRESSURE ULCER ON LEFT OUTER HEEL, COVERED WITH BANDAGE FROM [facility], AND A PRESSURE ULCER UNSTAGEABLE ON THE RIGHT HEEL. THIS IS KNOWN PRESSURE ULCERS FROM [facility]-WAY. PT IS ON A Q2HR TURN, USING PILLOWS UNDERNEATH HIPS TO HELP PT TURN.
--- NOTE | 2022-02-21 11:15 | NUR ---
UNABLE TO ANSWER INTAKE ADMISSION QUESTIONS. WILL UPDATE INTAKE INFORMATION IS GATHERED.
[2022-02-21 11:38] VITALS: BP 120/94; PULSE 57; TEMP 97.7
--- NOTE | 2022-02-21 14:34 | NUR ---
FULL ASSIST WITH MEALS.
[2022-02-21 15:49] VITALS: BP 114/89; PULSE 72; TEMP 97.1
[2022-02-21 20:16] VITALS: BP 107/80; PULSE 64; TEMP 97.6
--- NOTE | 2022-02-21 20:30 | NUR ---
Initial shift assessment done- sleeping- does awaken to name called- falls back asleep- states hes cold- warm blanket given- oriented to name only tonight-VSS except for o2 sats on RA 87-88%,, put on 2L/nc- sats 92-93% at this time, Lozoya with dark jannie urine- repositioned
[2022-02-22 00:29] VITALS: BP 98/73; PULSE 61; TEMP 97.5
[2022-02-22 04:49] VITALS: BP 113/82; PULSE 70; TEMP 98.1
--- NOTE | 2022-02-22 06:35 | NUR ---
Quiet night, VSS, no changes, has strong pedal pulses per doppler, Tele on- paced, Lozoya with jannie urine. ALIX PICC- flushes well,no problems with lab draws.
[2022-02-22 06:39] LABS: BASO % 1.1 % (0.0-2.0); EOS # 0.1 K/mm3 (0.0-0.7); EOS % 2.4 % (0.0-4.0); GRAN # 1.5 K/mm3 (1.4-6.5); GRAN % 38.8 % (42.2-75.2); HEMATOCRIT 43.6 % (42.0-52.0); HEMOGLOBIN 14.2 g/dl (13.5-18.0); LYMPH # 1.8 K/mm3 (1.2-3.4); LYMPH % 46.8 % (20.0-51.0); MEAN CELL VOLUME 98 fl (80.0-100.0); MEAN CORPUSCULAR HEMOGLOBIN 32 pg (27-31); MEAN CORPUSCULAR HGB CONC 33 g/dl (33.0-37.0); MEAN PLATELET VOLUME 11.6 fl (7.4-10.4); MONO # 0.4 K/mm3 (0.1-0.6); MONO % 10.4 % (1.7-9.3); PLATELET COUNT 134 K/mm3 (130-400); RED BLOOD COUNT 4.45 M/mm3 (4.20-5.60); REDCELL DISTRIBUTION WIDTH-CV 14.3 % (11.5-14.5)
[2022-02-22 07:06] LABS: ALBUMIN 3.1 gm/dL (3.4-4.8); BILIRUBIN,TOTAL 1.2 mg/dL (0.2-1.2); CALCIUM 9.3 mg/dL (8.4-10.2); CREATININE, serum 1.17 mg/dL (0.72-1.25); POTASSIUM 3.1 mmol/L (3.5-4.5); TOTAL PROTEIN 6.2 gm/dL (6.2-8.1)
[2022-02-22 07:16] VITALS: BP 117/76; PULSE 70; TEMP 98
--- NOTE | 2022-02-22 09:42 | NUR ---
Pt assessment cmoplete. Pt sitting up in bed upon entry, arouses to voice but is not oriented. Breathing even and unlabored on 2L O2 via NC. Pt takes a lot of encouragement to swallow pills. No coughing or drooling present. Denies any pain. Heel protectors placed to bilateral feet. No needs at this time.
[2022-02-22 10:06] LABS: INR 3.8 (0.8-3.0); PROTHROMBIN TIME 42.3 SECONDS (9.7-12.8)
[2022-02-22 11:57] VITALS: BP 111/87; PULSE 72; TEMP 97.5
--- NOTE | 2022-02-22 12:52 | NUR ---
Patient recently discharged from the facility and placed at [facility] unit. Patient is bedbound and requires assistance will all ADL's. Patient does have a DPOA-HC established listing his daughter Melanie [phone] and a copy can be loacted in the patient EMR. Phone call made to Melanie to notify her of the patient being here and to address any questions/concerns. Melanie states that she had talked with the wanda RN yesterday but had not heard anything today. Melanie requests a phone call later this afternoon from the patients RN. Discharge plan: [facility]
--- NOTE | 2022-02-22 14:59 | NUR ---
Social Work student faxed clinical uodates to Nasreen at [facility].
[2022-02-22 15:58] VITALS: BP 100/71; PULSE 67; TEMP 97.8
[2022-02-22 19:50] VITALS: BP 92/72; PULSE 61; TEMP 97.6
--- NOTE | 2022-02-22 20:30 | NUR ---
Initial shift assessment done- oriented to person/not place time- takes meds without any problems, tele on, Lozoya with jannie urine, NPO after MN, PICC line to ALIX, NPO after midnight for ELLIOTT/cardioversion in am.
[2022-02-23] VITALS (7 sets, daily range): BP systolic 93–113; BP diastolic 68–84; PULSE 63–70; TEMP 97.4–98.1
--- NOTE | 2022-02-23 06:03 | NUR ---
Quiet night- B/P stable throughout the night in the low to mid 90,s systolic, Was incontinent of a large soft stool- cleaned up- new mepilex applied to coccyx , has been NPO after MN -
[2022-02-23 06:38] LABS: BASO % 0.7 % (0.0-2.0); EOS # 0.1 K/mm3 (0.0-0.7); EOS % 1.8 % (0.0-4.0); GRAN # 1.9 K/mm3 (1.4-6.5); GRAN % 43.5 % (42.2-75.2); HEMATOCRIT 44.2 % (42.0-52.0); LYMPH # 1.9 K/mm3 (1.2-3.4); LYMPH % 43.6 % (20.0-51.0); MEAN CELL VOLUME 101 fl (80.0-100.0); MEAN CORPUSCULAR HEMOGLOBIN 32 pg (27-31); MEAN CORPUSCULAR HGB CONC 32 g/dl (33.0-37.0); MEAN PLATELET VOLUME 11.4 fl (7.4-10.4); MONO # 0.4 K/mm3 (0.1-0.6); MONO % 10.2 % (1.7-9.3); PLATELET COUNT 131 K/mm3 (130-400); REDCELL DISTRIBUTION WIDTH-CV 14.3 % (11.5-14.5)
[2022-02-23 06:40] LABS: INR 3.1 (0.8-3.0); PROTHROMBIN TIME 34.8 SECONDS (9.7-12.8)
[2022-02-23 06:55] LABS: ALBUMIN 2.9 gm/dL (3.4-4.8); BILIRUBIN,TOTAL 1.1 mg/dL (0.2-1.2); CALCIUM 9.1 mg/dL (8.4-10.2); CREATININE, serum 1.17 mg/dL (0.72-1.25); POTASSIUM 3.4 mmol/L (3.5-4.5); TOTAL PROTEIN 5.9 gm/dL (6.2-8.1)
--- NOTE | 2022-02-23 07:50 | NUR ---
Pt off unit for heart cath at this time.
--- NOTE | 2022-02-23 08:30 | NUR ---
Shift assessment complete. Pt resting in bed. Alert, partially oriented. Lozoya catheter w/jannie urine output. Stage 2 ulcer to left buttock w/mepilex dressing. Vitals stable. Pt taken down for ELLIOTT/CV this morning and found to be in sinus rhythm prior to procedure. REsting in room w/o complaint now. COntinuing to monitor.
--- NOTE | 2022-02-23 12:30 | NUR ---
Took pt PO amiodarone and third dose of EFFER-K at this time and pt refused to take anything stating "I don't like it." Yash LEE updated of pt refusing Amio.
--- NOTE | 2022-02-23 15:31 | NUR ---
clinical updates faxed to Nasreen at [facility]
--- NOTE | 2022-02-23 19:20 | NUR ---
UNEVENTFUL DAY TODAY. PT RESTING IN BED W/O COMPLAINT.
[2022-02-24 03:34] VITALS: BP 117/81; PULSE 70; TEMP 98.1
[2022-02-24 06:35] LABS: HEMATOCRIT 44.5 % (42.0-52.0); HEMOGLOBIN 13.9 g/dl (13.5-18.0); MEAN CELL VOLUME 101 fl (80.0-100.0); MEAN CORPUSCULAR HEMOGLOBIN 32 pg (27-31); MEAN CORPUSCULAR HGB CONC 31 g/dl (33.0-37.0); MEAN PLATELET VOLUME 11.6 fl (7.4-10.4); PLATELET COUNT 123 K/mm3 (130-400); RED BLOOD COUNT 4.39 M/mm3 (4.20-5.60); REDCELL DISTRIBUTION WIDTH-CV 14.1 % (11.5-14.5)
[2022-02-24 06:56] LABS: ALBUMIN 2.9 gm/dL (3.4-4.8); BILIRUBIN,TOTAL 1.7 mg/dL (0.2-1.2); CALCIUM 9.1 mg/dL (8.4-10.2); CREATININE, serum 1.12 mg/dL (0.72-1.25); MAGNESIUM 1.7 mg/dL (1.6-2.6); POTASSIUM 3.9 mmol/L (3.5-4.5)
--- NOTE | 2022-02-24 07:01 | NUR ---
PT weaned to RA, milan remains in place, patent and secure with jannie colored urine. took meds without difficulty @HS, slept most of the noc. PICC patent/secure in ALIX.
[2022-02-24 07:53] VITALS: BP 115/83; PULSE 72; TEMP 98.2
--- NOTE | 2022-02-24 08:20 | NUR ---
Pt assessment complete. Pt is laying in bed upon entry, he is alert but unable to answer orientation questions. Pt continues to just say "oh boy". Does deny pain. Incontinent of stool, pericare provided. Darell KIRK. Pt sitting up eating breakfast at this time.
[2022-02-24 08:39] LABS: INR 2.9 (0.8-3.0); PROTHROMBIN TIME 34.2 SECONDS (9.7-12.8)
--- NOTE | 2022-02-24 11:35 | NUR ---
Clinical updates and discharge orders faxed to Nasreen at [facility].
[2022-02-24] MEDS ORDERED: ENTRESTO 24 MG1 EACH PO (12:06)
[2022-02-24] MEDS ORDERED: LASIX 20MG TABL20 MG PO (12:07)
[2022-02-24] MEDS ORDERED: CORDARONE200 MG/TAB PO (12:11)
[2022-02-24 12:23] VITALS: BP 110/76; PULSE 65; TEMP 98
--- NOTE | 2022-02-24 13:49 | NUR ---
Nasreen with [facility] states that the [facility] staff can be here at 1500 to pick the patient up. Patients daughter contacted and notified of the pick out hand time. Daughter requests for the patients RN to contact her with updates.
--- NOTE | 2022-02-24 15:50 | NUR ---
Report called to [facility]. PICC dc'd by [facility] earlier in day. Pt wheeled out of facility by staff member of [facility].
[2022-03-05] MEDS ORDERED: AMOXICILLIN 50500 MG PO (18:27)
== END 2022-02-24 15:51 | DRG 280 ==
LOC: COL.ER 04:34 → MEDICAL 07:47
PROVIDERS: Emergency Medicine; Physician Assistant; ADMIT Family Medicine
PROC: 02HV33Z Insertion of Infusion Device into Superior Vena Cava, Percutaneous Approach (ICD-10-PCS; principal; 2022-02-21)
DX: I13.0 Hypertensive heart and chronic kidney disease with heart failure and stage 1 through stage 4 chronic kidney disease, or unspecified chronic kidney disease (principal); I50.23 Acute on chronic systolic (congestive) heart failure; I21.A1 Myocardial infarction type 2; N18.9 Chronic kidney disease, unspecified; F03.90 Unspecified dementia, unspecified severity, without behavioral disturbance, psychotic disturbance, mood disturbance, and anxiety; I25.10 Atherosclerotic heart disease of native coronary artery without angina pectoris; I48.91 Unspecified atrial fibrillation; E78.5 Hyperlipidemia, unspecified; N40.0 Benign prostatic hyperplasia without lower urinary tract symptoms; D69.6 Thrombocytopenia, unspecified; I42.9 Cardiomyopathy, unspecified; E87.6 Hypokalemia; E83.42 Hypomagnesemia; R79.0 Abnormal level of blood mineral; L89.152 Pressure ulcer of sacral region, stage 2; L89.622 Pressure ulcer of left heel, stage 2; L89.612 Pressure ulcer of right heel, stage 2; J44.9 Chronic obstructive pulmonary disease, unspecified; D72.819 Decreased white blood cell count, unspecified; Z20.822 Contact with and (suspected) exposure to COVID-19; I69.320 Aphasia following cerebral infarction; Z95.5 Presence of coronary angioplasty implant and graft; Z79.01 Long term (current) use of anticoagulants; Z95.0 Presence of cardiac pacemaker; Z87.891 Personal history of nicotine dependence; Z79.82 Long term (current) use of aspirin; Z23 Encounter for immunization
CPT/HCPCS: 99223-AI; 99233-AI; 99239; C1751; C9113; J1940; J2704; J3475; Q9967

== ENCOUNTER 2022-03-03 10:56 | Emergency (ER) | payer MEDICARE, MEDICAID ==
[~2022-03-03] VITALS: Ht 180.3 cm; Wt 86.4 kg
[~2022-03-03 10:56] MED LIST changes: +CORDARONE200 MG/TAB PO; +ENTRESTO 24 MG1 EACH PO
[2022-03-03 10:58] VITALS: TEMP 98.2
[2022-03-03 11:47] LABS: BASO % 0.9 % (0.0-2.0); EOS # 0.1 K/mm3 (0.0-0.7); EOS % 2.6 % (0.0-4.0); GRAN # 1.1 K/mm3 (1.4-6.5); GRAN % 29.7 % (42.2-75.2); HEMATOCRIT 45.6 % (42.0-52.0); HEMOGLOBIN 14.5 g/dl (13.5-18.0); LYMPH % 55.7 % (20.0-51.0); MEAN CELL VOLUME 100 fl (80.0-100.0); MEAN CORPUSCULAR HEMOGLOBIN 32 pg (27-31); MEAN CORPUSCULAR HGB CONC 32 g/dl (33.0-37.0); MEAN PLATELET VOLUME 10.4 fl (7.4-10.4); MONO # 0.4 K/mm3 (0.1-0.6); MONO % 11.1 % (1.7-9.3); PLATELET COUNT 135 K/mm3 (130-400); RED BLOOD COUNT 4.54 M/mm3 (4.20-5.60); REDCELL DISTRIBUTION WIDTH-CV 13.8 % (11.5-14.5)
[2022-03-03 12:07] LABS: ALBUMIN 2.8 gm/dL (3.4-4.8); BILIRUBIN,TOTAL 1.2 mg/dL (0.2-1.2); CREATININE, serum 1.29 mg/dL (0.72-1.25); POTASSIUM 3.6 mmol/L (3.5-4.5); TOTAL PROTEIN 5.9 gm/dL (6.2-8.1)
[2022-03-03 15:18] LABS: COLLECTION METHOD CATHETER
[2022-03-03 15:41] LABS: MUCOUS Present (NOT PRESENT); PH 7 (5-8); SQUAMOUS EPITHELIAL 0-2 /hpf (0-10); URINE APPEARANCE Cloudy (CLEAR/HAZY); URINE BACTERIA Rare /hpf (NONE SEEN); URINE BILIRUBIN Negative (NEGATIVE); URINE BLOOD 3+ (NEGATIVE); URINE COLOR Amber (YELLOW); URINE GLUCOSE Negative (NEGATIVE); URINE KETONE Negative (NEGATIVE); URINE LEUKOCYTE ESTERASE 3+ (NEGATIVE); URINE NITRATE Positive (NEGATIVE); URINE PROTEIN(semi-quant) 2+ (NEGATIVE); URINE RBC >50 /hpf (0-2); URINE UROBILINOGEN >=4.0 (NEGATIVE)
[2022-03-03] MEDS ORDERED: CEPHALEXIN500 M1 PO (15:57)
[2022-03-03 16:42] VITALS: BP 92/70; PULSE 60
[2022-03-05] MEDS ORDERED: AMOXICILLIN 50500 MG PO (18:27)
== END 2022-03-03 16:50 | disposition home or self-care (01) ==
LOC: COL.ER 10:56
PROVIDERS: Personal Emergency Response Attendant
DX: F03.91 Unspecified dementia, unspecified severity, with behavioral disturbance (principal); I95.9 Hypotension, unspecified; N39.0 Urinary tract infection, site not specified; Z87.891 Personal history of nicotine dependence
CPT/HCPCS: J0696; J3480

== ENCOUNTER → 2022-03-10 | Outpatient (CLI) | payer MEDICARE, MEDICAID ==
[~2022-03-10] MED LIST changes: +AMOXICILLIN 50500 MG PO; +CEPHALEXIN500 M1 PO
[2022-03-10 12:08] LABS: CREATININE, serum 1.08 mg/dL (0.72-1.25); MAGNESIUM 1.6 mg/dL (1.6-2.6)
== END ==
LOC: ZCOL.LAB 11:23
PROVIDERS: Family Medicine
DX: I11.0 Hypertensive heart disease with heart failure (principal)

== ENCOUNTER 2022-03-12 03:27 | Emergency (ER) | payer MEDICARE, MEDICAID ==
[2022-03-12 03:28] VITALS: TEMP 98.4
[2022-03-12 04:38] VITALS: BP 116/92; PULSE 59
== END 2022-03-12 04:58 | disposition home or self-care (01) ==
LOC: COL.ER 03:27
DX: R10.2 Pelvic and perineal pain (principal); K59.00 Constipation, unspecified

== ENCOUNTER → 2022-04-10 | Outpatient (CLI) | payer MEDICARE, MEDICAID ==
[2022-04-10 14:31] LABS: CALCIUM 9.5 mg/dL (8.4-10.2); CREATININE, serum 1.34 mg/dL (0.72-1.25); POTASSIUM 3.5 mmol/L (3.5-4.5)
== END ==
LOC: COL.LAB 13:27
PROVIDERS: Family Medicine
DX: Z79.899 Other long term (current) drug therapy (principal)

== ENCOUNTER → 2022-04-13 | Outpatient (CLI) | payer MEDICARE, MEDICAID ==
[2022-04-13 11:20] LABS: BASO # 0.1 K/mm3 (0.0-0.2); BASO % 1.7 % (0.0-2.0); EOS # 0.2 K/mm3 (0.0-0.7); EOS % 6.4 % (0.0-4.0); GRAN # 0.6 K/mm3 (1.4-6.5); GRAN % 20.7 % (42.2-75.2); HEMATOCRIT 47.7 % (42.0-52.0); HEMOGLOBIN 14.6 g/dl (13.5-18.0); LYMPH # 1.8 K/mm3 (1.2-3.4); LYMPH % 59.8 % (20.0-51.0); MEAN CELL VOLUME 104 fl (80.0-100.0); MEAN CORPUSCULAR HEMOGLOBIN 32 pg (27-31); MEAN CORPUSCULAR HGB CONC 31 g/dl (33.0-37.0); MEAN PLATELET VOLUME 11.1 fl (7.4-10.4); MONO # 0.3 K/mm3 (0.1-0.6); MONO % 11.1 % (1.7-9.3); PLATELET COUNT 127 K/mm3 (130-400); RED BLOOD COUNT 4.59 M/mm3 (4.20-5.60); REDCELL DISTRIBUTION WIDTH-CV 15.9 % (11.5-14.5)
== END ==
LOC: ZCOL.LAB 10:15
PROVIDERS: Family Medicine
DX: I50.22 Chronic systolic (congestive) heart failure (principal)

== ENCOUNTER → 2022-05-26 | Outpatient (CLI) | payer MEDICARE, MEDICAID ==
[2022-05-26 16:39] LABS: COLLECTION METHOD CATHETER
[2022-05-26 16:51] LABS: MUCOUS Present (NOT PRESENT); PH 6 (5-8); SQUAMOUS EPITHELIAL 0-2 /hpf (0-10); URINE APPEARANCE Hazy (CLEAR/HAZY); URINE BACTERIA None Seen /hpf (NONE SEEN); URINE BLOOD 1+ (NEGATIVE); URINE CALCIUM OXALATE CRYSTAL Present (NOT PRESENT); URINE COLOR Amber (YELLOW); URINE GLUCOSE Negative (NEGATIVE); URINE KETONE Trace (NEGATIVE); URINE NITRATE Negative (NEGATIVE); URINE PROTEIN(semi-quant) 1+ (NEGATIVE); URINE RBC >50 /hpf (0-2); URINE UROBILINOGEN >=4.0 (NEGATIVE)
[2022-06-01] VITALS (286 sets, daily range): O2SAT 77–100
== END ==
LOC: ZCOL.LAB 16:31
PROVIDERS: Family Medicine
DX: N39.0 Urinary tract infection, site not specified (principal)

== ENCOUNTER 2022-05-29 18:22 | Inpatient (IN) | payer MEDICARE, MEDICAID ==
[2022-05-29] VITALS (35 sets, daily range): BP systolic 138; BP diastolic 93; PULSE 79; O2SAT 58–100
[~2022-05-29] VITALS: Ht 175.3 cm; Wt 94.5 kg
[2022-05-29 18:50] LABS: BASO % 0.4 % (0.0-2.0); EOS % 0.7 % (0.0-4.0); GRAN % 34.8 % (42.2-75.2); HEMATOCRIT 49.1 % (42.0-52.0); HEMOGLOBIN 15.7 g/dl (13.5-18.0); LYMPH # 1.3 K/mm3 (1.2-3.4); LYMPH % 47.6 % (20.0-51.0); MEAN CELL VOLUME 94 fl (80.0-100.0); MEAN CORPUSCULAR HEMOGLOBIN 30 pg (27-31); MEAN CORPUSCULAR HGB CONC 32 g/dl (33.0-37.0); MEAN PLATELET VOLUME 11.2 fl (7.4-10.4); MONO # 0.4 K/mm3 (0.1-0.6); MONO % 15.4 % (1.7-9.3); PLATELET COUNT 118 K/mm3 (130-400); RED BLOOD COUNT 5.21 M/mm3 (4.20-5.60); REDCELL DISTRIBUTION WIDTH-CV 17.4 % (11.5-14.5)
[2022-05-29 19:10] LABS: CALCIUM 9.7 mg/dL (8.4-10.2); CREATININE, serum 1.48 mg/dL (0.72-1.25); POTASSIUM 3.8 mmol/L (3.5-4.5)
[2022-05-29 19:21] LABS: TROPONIN-I 0.925 ng/mL (0.00-0.033)
[2022-05-29 19:45] LABS: ARTERIAL BLD GAS O2 SATURATION 99.2 % (92-100); ARTERIAL BLD GAS TCO2 CT 27.6; ARTERIAL BLOOD GAS BASE EXCESS 3.6 (-2-2); ARTERIAL BLOOD GAS HCO3 26.5 meq/L (22-26); ARTERIAL BLOOD GAS PCO2 34.8 mmHg (35-45)
[2022-05-29 19:46] LABS: ARTERIAL BLOOD GAS PO2 301.6 mmHg (80-100)
[2022-05-29 21:54] LABS: CALCIUM 9.3 mg/dL (8.4-10.2); CREATININE, serum 1.41 mg/dL (0.72-1.25); POTASSIUM 3.4 mmol/L (3.5-4.5)
[2022-05-29 22:05] LABS: TROPONIN-I 0.777 ng/mL (0.00-0.033)
[2022-05-29 22:11] LABS: COLLECTION METHOD CATHETER
[2022-05-29 22:18] LABS: MUCOUS Present (NOT PRESENT); PH 5 (5-8); SQUAMOUS EPITHELIAL 0-2 /hpf (0-10); URINE APPEARANCE Hazy (CLEAR/HAZY); URINE BACTERIA None Seen /hpf (NONE SEEN); URINE BLOOD 1+ (NEGATIVE); URINE COLOR Yellow (YELLOW); URINE GLUCOSE Negative (NEGATIVE); URINE KETONE Trace (NEGATIVE); URINE NITRATE Negative (NEGATIVE); URINE PROTEIN(semi-quant) 2+ (NEGATIVE); URINE RBC 20-50 /hpf (0-2)
--- NOTE | 2022-05-29 23:47 | NUR ---
UNABLE TO COMPLETE SUICIDE RISK ASSESSMENT DUE TO PT BEING INTUBATED/SEDATED
[2022-05-30] VITALS (1213 sets, daily range): BP systolic 69–103; BP diastolic 49–79; PULSE 54–89; TEMP 96–98.6; O2SAT 60–100
[2022-05-30 01:23] LABS: ALBUMIN 2.4 gm/dL (3.4-4.8); BILIRUBIN,TOTAL 1.8 mg/dL (0.2-1.2); CALCIUM 9.1 mg/dL (8.4-10.2); CREATININE, serum 1.44 mg/dL (0.72-1.25); POTASSIUM 3.9 mmol/L (3.5-4.5); TOTAL PROTEIN 5.9 gm/dL (6.2-8.1)
--- NOTE | 2022-05-30 02:59 | NUR ---
05/29/22 2245 - PT CAME OVER FROM ED W/ LEVO GTT RUNNING AT 0.03 MCG/KG/MIN. GTT CONTINUED AT THAT RATE
[2022-05-30 05:11] LABS: ARTERIAL BLD GAS O2 SATURATION 99.8 % (92-100); ARTERIAL BLD GAS TCO2 CT 26.9; ARTERIAL BLOOD GAS BASE EXCESS 3.8 (-2-2); ARTERIAL BLOOD GAS HCO3 25.9 meq/L (22-26); ARTERIAL BLOOD GAS PCO2 31.8 mmHg (35-45); ARTERIAL BLOOD GAS pH 7.53 (7.35-7.45)
[2022-05-30 05:12] LABS: ARTERIAL BLOOD GAS PO2 396.7 mmHg (80-100)
--- NOTE | 2022-05-30 05:42 | NUR ---
PT TOO UNSTABLE TO TOLERATE WEANING TRIAL AT THIS TIME
[2022-05-30 06:35] LABS: CREATININE, serum 1.43 mg/dL (0.72-1.25); MAGNESIUM 1.9 mg/dL (1.6-2.6); POTASSIUM 3.9 mmol/L (3.5-4.5)
[2022-05-30 06:46] LABS: BASO % 0.4 % (0.0-2.0); EOS # 0.1 K/mm3 (0.0-0.7); EOS % 1.2 % (0.0-4.0); GRAN # 3.3 K/mm3 (1.4-6.5); GRAN % 65.5 % (42.2-75.2); HEMATOCRIT 42.6 % (42.0-52.0); HEMOGLOBIN 13.9 g/dl (13.5-18.0); LYMPH # 1.2 K/mm3 (1.2-3.4); LYMPH % 24.3 % (20.0-51.0); MEAN CELL VOLUME 94 fl (80.0-100.0); MEAN CORPUSCULAR HEMOGLOBIN 31 pg (27-31); MEAN CORPUSCULAR HGB CONC 33 g/dl (33.0-37.0); MEAN PLATELET VOLUME 11.6 fl (7.4-10.4); MONO # 0.4 K/mm3 (0.1-0.6); PLATELET COUNT 107 K/mm3 (130-400); RED BLOOD COUNT 4.55 M/mm3 (4.20-5.60); REDCELL DISTRIBUTION WIDTH-CV 17.1 % (11.5-14.5)
--- NOTE | 2022-05-30 07:00 | NUR ---
Pt intubated and sedated. VSS. Pt on primidone, levophed, propofol, and fent. Pt having bedside echo done at this time.
--- NOTE | 2022-05-30 10:19 | NUR ---
SEDATION RESTARTED AND VENT BACK TO AC MODE PER
--- NOTE | 2022-05-30 11:50 | NUR ---
Weights And Measures Inspector contacted patient's daughter/DPOA-HC, Melanie Canela (ph#[phone]) to complete initial intake as patient is currently intubated and is positive for covid. Patient is a resident of [facility] and sees Dr. Negron for primary care. Patient is wheelchair bound and needs assistance from staff with ADLS. Patient's , Brie (ph#[phone]) lives locally. Copy of Advance Directives are in EMR, which designate Melanie as DPOA-HC. SW contacted Brittni at [facility] and faxed clinical updates. SW contacted Hospitalist to discuss palliative consult for discussion of goals of care.
[2022-05-30 12:53] LABS: ARTERIAL BLD GAS O2 SATURATION 95.8 % (92-100); ARTERIAL BLOOD GAS BASE EXCESS 3.3 (-2-2); ARTERIAL BLOOD GAS HCO3 27.8 meq/L (22-26); ARTERIAL BLOOD GAS PCO2 41.7 mmHg (35-45); ARTERIAL BLOOD GAS PO2 85.4 mmHg (80-100); ARTERIAL BLOOD GAS pH 7.44 (7.35-7.45)
--- NOTE | 2022-05-30 14:50 | NUR ---
1430 - NAV HANDLE MAKER HERE TO INSERT ARTERIAL LINE. SUPPLIES PROVIDED. 1445 - REQESTED LEVOPHED BE TITRATED UP TO MAKE PULSE STRONGER. - SEE TITRATIONS FOR EXACT RATES
--- NOTE | 2022-05-30 16:59 | NUR ---
NO SEDATION VACATION AT THIS TIME, D/T HYPOTENTION AND LESS THAN 24 INTUBATION
[2022-05-31] VITALS (1324 sets, daily range): BP systolic 39–120; BP diastolic 15–80; PULSE 68–87; TEMP 97–98.1; O2SAT 72–100
--- NOTE | 2022-05-31 05:24 | NUR ---
PT TOO UNSTABLE AT THIS TIME.
[2022-05-31 05:28] LABS: HEMATOCRIT 40.6 % (42.0-52.0); HEMOGLOBIN 13.3 g/dl (13.5-18.0); MEAN CELL VOLUME 94 fl (80.0-100.0); MEAN CORPUSCULAR HEMOGLOBIN 31 pg (27-31); MEAN CORPUSCULAR HGB CONC 33 g/dl (33.0-37.0); MEAN PLATELET VOLUME 11.8 fl (7.4-10.4); PLATELET COUNT 113 K/mm3 (130-400); RED BLOOD COUNT 4.34 M/mm3 (4.20-5.60); REDCELL DISTRIBUTION WIDTH-CV 16.8 % (11.5-14.5)
[2022-05-31 05:44] LABS: ARTERIAL BLD GAS O2 SATURATION 97.5 % (92-100); ARTERIAL BLOOD GAS BASE EXCESS 3.8 (-2-2); ARTERIAL BLOOD GAS HCO3 27.8 meq/L (22-26); ARTERIAL BLOOD GAS PCO2 39.5 mmHg (35-45); ARTERIAL BLOOD GAS PO2 104.3 mmHg (80-100); ARTERIAL BLOOD GAS pH 7.47 (7.35-7.45)
--- NOTE | 2022-05-31 08:00 | NUR ---
Patient intubated and sedated; unable to assess for suicide risk at this time.
--- NOTE | 2022-05-31 08:40 | NUR ---
Levophed infusion stopped for several minutes due to alarm "volume complete" while this nurse was in another room. During the few minutes Levophed was off patient's BP dropped precipitously to a systolic in the 30's. A new bag was hung immediately and Levophed was titrated up to the max titration briefly per Dr. Deleon. Able to titrate back down within 10 minutes. Will continue to monitor.
--- NOTE | 2022-05-31 09:00 | NUR ---
Left upper extremity noted to be larger than the right. Right arm has a picc line present. Dr. Deleon notified. Will continue to monitor and may need to obtain a venous dupplex.
--- NOTE | 2022-05-31 09:26 | NUR ---
Call made to patient's daughter, Melanie. She conferenced in her sister in [place]. They stated that as a family, they decided that if the patient's heart were to stop again, that no aggressive measures should be taken. The daughter in [place] is flying in tomorrow night and the family requested to visit the patient before they make and decision to withdraw care. Discussed hospital policy about visitors when patient is in isolation and that we can ask for a family meeting at bedside from ICU director. They verbalized understanding that special permission will need to be granted and that at the moment it has not been. Gave my contact information to both daughters and current plan is to provide regular updates and help coordinate once the daughter from [place] is in [place]. Updated SW and care team as well.
[2022-05-31 09:54] LABS: CALCIUM 8.9 mg/dL (8.4-10.2); CREATININE, serum 1.42 mg/dL (0.72-1.25); MAGNESIUM 1.9 mg/dL (1.6-2.6); POTASSIUM 3.2 mmol/L (3.5-4.5)
--- NOTE | 2022-05-31 10:53 | NUR ---
Director Of Automation faxed clinical updates to [facility]. TORRES spoke with Marisol, Palliative Care RN who advised patient's daughter, Melanie is driving here from out of state and plans to be here Sunday to visit in person if she's able and make decisions about goals of care. TORRES updated Brittni at [facility].
[2022-05-31 12:16] LABS: ARTERIAL BLD GAS O2 SATURATION 95.2 % (92-100); ARTERIAL BLD GAS TCO2 CT 28.4; ARTERIAL BLOOD GAS BASE EXCESS 2.7 (-2-2); ARTERIAL BLOOD GAS HCO3 27.1 meq/L (22-26); ARTERIAL BLOOD GAS PO2 76.9 mmHg (80-100); ARTERIAL BLOOD GAS pH 7.44 (7.35-7.45)
--- NOTE | 2022-05-31 13:00 | NUR ---
Assisted with repositing and rosamaria-care. Opened eyes and grimaced with turning. Not following any commands at this time. VS stable at this time. Will contiune to monitor.
--- NOTE | 2022-05-31 17:12 | NUR ---
Updated family via telephone; all questions and concerns addressed at this time.
--- NOTE | 2022-05-31 19:30 | NUR ---
Received report from SUDEEP Downey. Patient resting quietly in bed. He remains on ventilator, tolerating well. Continues to receive fentanyl, propofol, levophed, milrinone, and amiodarone drips, see IV drip titrations. All vitals within normal limits. He arouses to pain but does not fully open eyes or follow verbal commands.
[2022-06-01] VITALS (1071 sets, daily range): BP systolic 100–125; BP diastolic 67–87; PULSE 61–80; TEMP 97.5–97.8; O2SAT 32–100
[2022-06-01 05:10] LABS: ARTERIAL BLD GAS O2 SATURATION 95.7 % (92-100); ARTERIAL BLOOD GAS BASE EXCESS 0.1 (-2-2); ARTERIAL BLOOD GAS PCO2 32.3 mmHg (35-45); ARTERIAL BLOOD GAS PO2 79.4 mmHg (80-100); ARTERIAL BLOOD GAS pH 7.47 (7.35-7.45)
[2022-06-01 05:33] LABS: BASO % 0.2 % (0.0-2.0); GRAN # 7.5 K/mm3 (1.4-6.5); GRAN % 88.1 % (42.2-75.2); HEMATOCRIT 39.7 % (42.0-52.0); HEMOGLOBIN 13.1 g/dl (13.5-18.0); LYMPH # 0.6 K/mm3 (1.2-3.4); LYMPH % 6.7 % (20.0-51.0); MEAN CELL VOLUME 92 fl (80.0-100.0); MEAN CORPUSCULAR HEMOGLOBIN 30 pg (27-31); MEAN CORPUSCULAR HGB CONC 33 g/dl (33.0-37.0); MEAN PLATELET VOLUME 12.1 fl (7.4-10.4); MONO # 0.4 K/mm3 (0.1-0.6); MONO % 4.6 % (1.7-9.3); PLATELET COUNT 126 K/mm3 (130-400); RED BLOOD COUNT 4.33 M/mm3 (4.20-5.60); REDCELL DISTRIBUTION WIDTH-CV 16.3 % (11.5-14.5)
--- NOTE | 2022-06-01 05:41 | NUR ---
Propofol titrated to standby for roughly 30 minutes. Patient noted to be biting lightly at ET tube; facial grimacing observed. Propfol resumed at prior infusing rate.
[2022-06-01 05:51] LABS: ALBUMIN 2.1 gm/dL (3.4-4.8); BILIRUBIN,TOTAL 3.5 mg/dL (0.2-1.2); CALCIUM 9.2 mg/dL (8.4-10.2); CREATININE, serum 1.31 mg/dL (0.72-1.25); POTASSIUM 3.9 mmol/L (3.5-4.5); TOTAL PROTEIN 5.9 gm/dL (6.2-8.1)
--- NOTE | 2022-06-01 12:28 | NUR ---
Call made to patient's daughter, Melanie. Updated her on patient status and discussed family meeting. Melanie and Valery will be the only family members coming. They requested 06/02 at 1300. Notified SW and care team. Will work with ICU director/staff to coordinate.
--- NOTE | 2022-06-01 12:34 | NUR ---
Instructed by Dr. Rivers to titrate Milrinone down to 0.125 mcg/kg/min. Will monitor how patient tolerates this change.
--- NOTE | 2022-06-01 13:29 | NUR ---
Hospitalist feels family meeting should be with Dr. Deleon. Call made to patient's daughter, Melanie. She and her sister are able attend at 10am Sunday morning. Notified care team and Dr. Deleon.
--- NOTE | 2022-06-01 13:44 | NUR ---
Assistant Statistician and Palliative RN contacted patient's daughter, Melanie to schedule family meeting for tomorrow at [address] Deleon. Marisol, Palliative RN notified ICU team.
--- NOTE | 2022-06-01 15:21 | NUR ---
Sedation discontinued at this time for a CPAP trial. Will monitor his response to the trial.
--- NOTE | 2022-06-01 19:00 | NUR ---
Received report from SUDEEP Downey.
--- NOTE | 2022-06-01 23:30 | NUR ---
Tube feed residuals of 300mL. Feeds held at this time. Will recheck in two hours.
[2022-06-02] VITALS (577 sets, daily range): BP systolic 81–107; BP diastolic 63–75; PULSE 80–82; TEMP 97–97.9; O2SAT 35–100
--- NOTE | 2022-06-02 05:36 | NUR ---
Tube feed residuals still 300mL at 0200 and again at 0500. Feeds remain on hold at this time.
[2022-06-02 06:16] LABS: HEMATOCRIT 39.7 % (42.0-52.0); HEMOGLOBIN 12.9 g/dl (13.5-18.0); MEAN CELL VOLUME 91 fl (80.0-100.0); MEAN CORPUSCULAR HEMOGLOBIN 30 pg (27-31); MEAN CORPUSCULAR HGB CONC 33 g/dl (33.0-37.0); MEAN PLATELET VOLUME 11.3 fl (7.4-10.4); PLATELET COUNT 153 K/mm3 (130-400); RED BLOOD COUNT 4.35 M/mm3 (4.20-5.60); REDCELL DISTRIBUTION WIDTH-CV 16.5 % (11.5-14.5)
[2022-06-02 06:48] LABS: CALCIUM 9.2 mg/dL (8.4-10.2); CREATININE, serum 1.2 mg/dL (0.72-1.25); POTASSIUM 4.1 mmol/L (3.5-4.5)
[2022-06-02 06:59] LABS: ANISOCYTOSIS 1+; BAND 4 % (0-10); HYPOCHROMIA 1+; LYMPHOCYTE 9 % (20.0-51.0); NEUTROPHILS 85 % (42.0-75.2); NUCLEATED RED BLOOD CELL 3 (0-6); PLATELET ESTIMATE NORMAL (NORMAL); TARGET CELLS 1+
[2022-06-02 07:00] LABS: BURR CELLS 1+
--- NOTE | 2022-06-02 09:10 | NUR ---
PATIENT NOT MEETING REQUIREMENTS TO WEAN OFF OF VENT
--- NOTE | 2022-06-02 09:31 | NUR ---
During assessment patient is lying in bed. PT grimaces durin assessment and opens eyes. Does not follow commands. Pt quickly falls back asleep and appears comfortable. All lines, tubes and medications confirmed. vitals obtained. pt repositioned.
[2022-06-02 10:29] LABS: ARTERIAL BLD GAS O2 SATURATION 96.6 % (92-100); ARTERIAL BLD GAS TCO2 CT 28.5; ARTERIAL BLOOD GAS BASE EXCESS 3.3 (-2-2); ARTERIAL BLOOD GAS HCO3 27.3 meq/L (22-26); ARTERIAL BLOOD GAS PCO2 39.4 mmHg (35-45); ARTERIAL BLOOD GAS PO2 93.3 mmHg (80-100); ARTERIAL BLOOD GAS pH 7.46 (7.35-7.45)
--- NOTE | 2022-06-02 10:52 | NUR ---
Attended family meeting with patient's daughters, Melanie and Valery. Patient's ex-/daughters' mother was also present. Family had a chance to talk with Dr. Deleon and amongst themselves. Melanie stepped out to get the patient's so she can be here when they share the decision they made.
--- NOTE | 2022-06-02 11:05 | NUR ---
Monumental Stonemason met with patient daughters Melanie (DPOA-) and Valery, and Valery's mother with [facility], and Dr. Deleon for family meeting at patient bedside. This adoption social worker notes patient is in isolation precautions, so this Monumental Stonemason attends the meeting via conference call. Family is informed of patient condition and they have opporutnity to ask questions regarding patient care options. Daughter requests a letter for FMLA and a letter to support additional sisters in [place] obtaining an emergency Visa to arrive to the [place] to be with patient and family. The family states they are of [facility], and they would like contact with the hospital Dietician. Family is considering options to continue medical intervention vs. withdrawing treatment and comfort care. Daughter Melanie states she is aware that patient would like them to make the decisions on his behalf, "He wants us to choose." They remain at patient bedside at this time in discussion; Monumental Stonemason continues to offer patient and family emotional support, as needed. Monumental Stonemason contacts Chaplain Kaia, for referral per family request.Dietician is initiating contact with patient family initiating contact with patient family,but due to isolation precautions will meet with family outside of patient room. Dietician informs that a family vargas may be contacted by family as well, and may arrive to the hospital. Plan of care pending family decision-making. Social Work continues to follow and coordinate services as indicated Monumental Stonemason to collaborate with Dr. Rucker for family letter requests.
--- NOTE | 2022-06-02 12:55 | NUR ---
Initial visit; Patient in Isolation, family wanted to visit with Commercial Carpet Installer. Commercial Carpet Installer sat with two of them while another daughter went for her step-mother. It appeared family felt better having someone with them. Commercial Carpet Installer left them alone for awhile. They will be waiting for more family to arrive and make decisions concerning [place] then. Their Morse from their jewish will be called.
--- NOTE | 2022-06-02 13:26 | NUR ---
Marisol RN informs patient family has determined plan to withdrawal patient care. Credit Risk Officer remains available for emotional support.
--- NOTE | 2022-06-02 14:37 | NUR ---
PT WAS TERMINALLY EXTUBATED AT THIS TIME, FAMILY AND RN AT BEDSIDE.
--- NOTE | 2022-06-02 14:37 | NUR ---
Yanira RN updates that patient has passed approximately 10 minutes ago; patient daughters, ex- and current , now all at bedside. They appear to be adequately coping at this time. arrangements remain unknown; nursing recommends holding on discussion at this time. Social Work to meet with patient family and determine arrangement/ home and/or continued need for letters as requested earlier today. [employer] attempted contact to [employer] legal administrator Debbie Collier, and left message with clerical assistant requesting call back to update on mutual client; licensed clinical social worker informed the RN is not available, as is on the phone at this time with another physician. [employer] remains available as needed.
--- NOTE | 2022-06-02 15:06 | NUR ---
Recieved call from Charge nurse SUDEEP Doyle that time of was 1440. Family was at bedside at the time of . Call placed to [facility] regarding patient information. After review of information it was determined that patient would not be a canidate for donation due to COVID-19 status and age. Patient is released to home. Confirmation # [id number]. Made Dr Epifanio Negron aware of his patients and situation. [facility] call to make aware of patients . 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 Primary nurse made aware. Patient without any jewerly. Will send dentures to home with patient
--- NOTE | 2022-06-02 15:43 | NUR ---
Extubation 1515- comfort measures initiated. 1420 - cease in vital signs, heart sounds absent. Dr. Rucker notified. Time of 1420.
== END 2022-06-02 16:10 | disposition expired | DRG 208 ==
LOC: COL.ER 18:22 → ICU 21:43
PROVIDERS: Emergency Medicine; Internal Medicine; Internal Medicine Pulmonary Disease; Student in an Organized Health Care Education/Training Program; ADMIT Internal Medicine
PROC: 0BH17EZ Insertion of Endotracheal Airway into Trachea, Via Natural or Artificial Opening (ICD-10-PCS; principal; 2022-05-29)
PROC: 5A1945Z Respiratory Ventilation, 24-96 Consecutive Hours (ICD-10-PCS; 2022-05-29)
PROC: 06HY33Z Insertion of Infusion Device into Lower Vein, Percutaneous Approach (ICD-10-PCS; 2022-05-29)
PROC: 02H633Z Insertion of Infusion Device into Right Atrium, Percutaneous Approach (ICD-10-PCS; 2022-05-30)
DX: U07.1 COVID-19 (principal); J96.01 Acute respiratory failure with hypoxia; I50.23 Acute on chronic systolic (congestive) heart failure; I21.A1 Myocardial infarction type 2; J12.82 Pneumonia due to coronavirus disease 2019; I42.9 Cardiomyopathy, unspecified; Z66 Do not resuscitate; Z51.5 Encounter for palliative care; R18.8 Other ascites; J91.8 Pleural effusion in other conditions classified elsewhere; N17.9 Acute kidney failure, unspecified; E87.0 Hyperosmolality and hypernatremia; E87.3 Alkalosis; F03.90 Unspecified dementia, unspecified severity, without behavioral disturbance, psychotic disturbance, mood disturbance, and anxiety; I11.0 Hypertensive heart disease with heart failure; N40.0 Benign prostatic hyperplasia without lower urinary tract symptoms; L89.629 Pressure ulcer of left heel, unspecified stage; L89.619 Pressure ulcer of right heel, unspecified stage; I48.91 Unspecified atrial fibrillation; I46.9 Cardiac arrest, cause unspecified; I95.9 Hypotension, unspecified; I25.10 Atherosclerotic heart disease of native coronary artery without angina pectoris; E78.5 Hyperlipidemia, unspecified; F32.A Depression, unspecified; D72.819 Decreased white blood cell count, unspecified; E87.6 Hypokalemia; D69.6 Thrombocytopenia, unspecified; M19.90 Unspecified osteoarthritis, unspecified site; H40.9 Unspecified glaucoma; R57.0 Cardiogenic shock; Z79.01 Long term (current) use of anticoagulants; Z88.8 Allergy status to other drugs, medicaments and biological substances; Z95.0 Presence of cardiac pacemaker; Z86.73 Personal history of transient ischemic attack (TIA), and cerebral infarction without residual deficits; Z95.5 Presence of coronary angioplasty implant and graft; Z79.82 Long term (current) use of aspirin; Z23 Encounter for immunization
CPT/HCPCS: C1751; C9113; J0282; J1100; J1170; J1940; J2060; J2260; J2310; J2704; J3010; J3480; J7040; J7050; J7060; J7120; Q9967